=== PATIENT | female | born 1990 | race Caucasian/White ===

== ENCOUNTER → 2019-12-11 10:27 | Outpatient (CLI) | payer OTHER, SELFPAY ==
[2019-12-11 11:43] LABS: HCG Quantitative /Beta subunit 12.6 mIU/mL
== END ==
PROVIDERS: Referring Provider Specialist; Visit Provider Specialist
DX: O20.0 Threatened abortion (principal); O20.9 Hemorrhage in early pregnancy, unspecified
CPT/HCPCS: 36415; 84702

== ENCOUNTER → 2020-05-15 12:04 | Outpatient (CLI) | payer OTHER, SELFPAY ==
[2020-05-15 14:17] LABS: Add Manual Diff / Slide Review NO; Basophils Absolute Auto 0 /uL (0-100); Basophils Percent Auto 0.3 % (0-2); Eosinophils Absolute Auto 100 /uL (0-450); Eosinophils Percent Auto 1.7 % (2-4); Hematocrit 32.8 % (36-46); Hemoglobin 11.1 g/dL (12.0-16.0); Lymphocytes Absolute Auto 1900 /uL (1100-4500); Lymphocytes Percent Auto 22.2 % (25-40); Mean Corpuscular Hemoglobin 32.2 PG (26-34); Mean Corpuscular Volume 94.7 fL (80-100); Monocytes Absolute Auto 500 /uL (0-900); Neutrophils Absolute Auto 6000 /uL (1500-7000); Neutrophils Percent Auto 69.8 % (50-75); Platelet Count 283 X10^3/uL (150-400); Red Blood Cell Count 3.46 X10^6/uL (4.0-5.2); Red Cell Distribution Width 13.3 % (11.6-14.8); White Blood Cell Count 8.6 X10^3/uL (4.5-11.0)
[2020-05-15 14:27] LABS: Appearance Urine UA CLEAR; Bilirubin Urine UA NEGATIVE (NEGATIVE); Color Urine UA YELLOW; Glucose Urine UA NEGATIVE (Negative); Ketones Urine UA NEGATIVE (NEGATIVE); Leukocyte Esterase Urine UA NEGATIVE (NEGATIVE); Nitrite Urine UA NEGATIVE (Negative); Occult Blood Urine UA NEGATIVE (Negative); Protein Urine UA NEGATIVE (Negative); Specific Gravity Urine UA <=1.005 (1.000-1.035); Urobilinogen Urine UA 0.2 E.U./dL (0.2)
[2020-05-15 14:41] LABS: pH Urine UA 6.5 (4.5-8.0)
[2020-05-16 04:36] LABS: RPR Screen Non Reactive (Non Reactive)
[2020-05-16 07:17] LABS: Varicella IgG Antibody 3660 index (Immune >165)
[2020-05-18 17:18] LABS: Hepatitis B Surface Antigen NEGATIVE s/c (NEGATIVE); Rubella Antibody IgG 60.1 IU/mL (>15)
[2020-05-18 17:23] LABS: HIV 1 & 2 Ab/Ag 4th Gen Combo NEGATIVE (NEGATIVE); Hep C Virus Ab w/Reflex Quant NEGATIVE s/c (NEGATIVE)
== END ==
PROVIDERS: PCP Family Medicine; Referring Provider Specialist; Visit Provider Specialist
DX: Z34.91 Encounter for supervision of normal pregnancy, unspecified, first trimester (principal)
CPT/HCPCS: 36415; 80055; 81003; 86787; 86803; 86850; 86900; 86901; 87389

== ENCOUNTER → 2020-06-12 12:41 | Outpatient (CLI) | payer OTHER, SELFPAY | PROVIDERS: PCP Family Medicine; Visit Provider Specialist | DX: Z34.02 Encounter for supervision of normal first pregnancy, second trimester (principal) | CPT/HCPCS: 87491; 87591 ==

== ENCOUNTER → 2020-07-12 11:54 | Outpatient (CLI) | payer OTHER, SELFPAY ==
--- NOTE | 2020-07-12 11:54 | DI.US.S_ITS ---
PROCEDURE: US OB >= 14 WEEKS FETUS INDICATIONS: 20 week anatomy scan OUTSIDE/PRIOR DATING DATA: Last menstrual period (LMP): 02/15/20 . LMP-based estimated date of delivery (KEMAL): 11/21/20 . First dating scan (date and location): 04/17/20 . Estimated date of delivery (KEMAL) from first dating scan: 11/23/20 . TECHNIQUE: Real-time scanning was performed of the fetus, with image documentation and biometric measurements. Endovaginal scanning: Not performed COMPARISON: [facility], , OB <= 14 WEEKS FETUS, 04/17/2020, 11:34. [facility], , OB <= 14 WEEKS FETUS, 04/03/2020, 14:28. [facility], OB >= 14 WEEKS FETUS, 06/12/2020, 12:34. FINDINGS: General: A single living intrauterine gestation is present. Presentation: Vertex. Placenta: Placental position is anterior , without previa. Amniotic fluid index: 18.7 cm, normal range is 5-24 cm. heart rate: 155 beats per minute. Maternal cervical canal: 5.3 cm long. Normal lower limit is 2.5 cm. biometrics: Biparietal diameter: 4.9 cm, 20 weeks 5 days Head circumference: 18.6 cm, 20 weeks 6 days Abdominal circumference: 15.8 cm, 21 weeks 0 days Femur length: 4.4 cm, 24 weeks 4 days Estimated gestational age from initial scan: 20 weeks 6 days Composite gestational age from present scan: 21 weeks 6 days Estimated weight and percentile: 496 g, 99th percentile Measurement variability for biometric dating: +/- 7 days from 14 weeks to 15 weeks 6 days gestation, +/- 10 days from 16 weeks to 21 weeks 6 days gestation, +/- 2 weeks from 22 weeks to 27 weeks 6 days gestation, +/- 3 weeks for 28 weeks gestation or later. weight reference: 4500 g or EFW >90/95% is considered macrosomia or large for gestational age. EFW <10% is small for gestational age. EFW 5% or less is considered intra-uterine growth restriction. Anatomic survey: Neuro: Ventricles are non-dilated at less than 10 mm. Cisterna magna is normal at 3-11 mm. Cerebellum is normal in size and morphology. Nuchal skin fold: Normal at less than 6 mm between 14-21 weeks gestational age. Face: Nose and lips, facial profile are normal. Spine: No evidence for spina bifida. Heart: 4-chambered heart is present, with normal ventricular outflow tracts. Diaphragm: Diaphragm is intact. Stomach: Left-sided stomach is present. Kidneys: No hydronephrosis. Normal is less than 5 mm in 2nd trimester, less than 7 mm in 3rd trimester. Cord: 3-vessel cord has orthotopic insertion. Bladder: Normal in size. Extremities: All 4 extremities identified. IMPRESSION: Single living intrauterine fetus in vertex presentation. Estimated weight at the 99th percentile raising possibility of macrosomia versus constitutional. If clinically warranted, a follow-up growth ultrasound in 4 weeks could be performed. Normal anatomic survey Dictated by: Geo Corona M.D. on 07/12/2020 at 17:23 Approved by: Geo Corona M.D. on 07/12/2020 at 17:27
== END ==
PROVIDERS: PCP Family Medicine; Referring Provider Specialist; Visit Provider Specialist
DX: Z34.82 Encounter for supervision of other normal pregnancy, second trimester (principal); Z3A.17 17 weeks gestation of pregnancy
CPT/HCPCS: 76811

== ENCOUNTER → 2020-08-14 10:47 | Outpatient (CLI) | payer OTHER, SELFPAY ==
[2020-08-14 12:47] LABS: Hematocrit 31.8 % (36-46); Hemoglobin 11.1 g/dL (12.0-16.0)
[2020-08-14 13:28] LABS: GTT (PREG) 1 Hour PP 50gm Dose 81 mg/dL (76-139)
== END ==
PROVIDERS: PCP Family Medicine; Referring Provider Specialist; Visit Provider Specialist
DX: Z34.02 Encounter for supervision of normal first pregnancy, second trimester (principal); Z3A.26 26 weeks gestation of pregnancy
CPT/HCPCS: 36415; 82950; 85014; 85018

== ENCOUNTER → 2020-10-25 15:16 | Outpatient (CLI) | payer OTHER, SELFPAY ==
[2020-10-26 20:30] LABS: Strep Grp B PCR NEG for Grp B Strep
== END ==
PROVIDERS: PCP Family Medicine; Visit Provider Specialist
DX: Z34.83 Encounter for supervision of other normal pregnancy, third trimester (principal); Z3A.36 36 weeks gestation of pregnancy
CPT/HCPCS: 87653

== ENCOUNTER 2020-10-30 09:08 | Inpatient (IN) | payer OTHER, SELFPAY ==
--- NOTE | 2020-10-30 10:18 | PM.OBHP.1 ---
OB HPI Date/Time Date of admission: 10/30/20 Date Patient Seen: 10/30/20 Time Patient Seen: 10:00 History of Present Condition Chief complaint: OBSERVATION : 1 Para: 0 Estimated Date of Delivery: 10/21/20 Estimated Gestational Age (weeks): 37 Narrative: Bryn Blake is a 30 year old at 37 weeks 0 days presenting after rupture for clear fluid at 12:45 p.m. last night, with increasing contractions now Q 2. The patient reports that she had a large gush of fluid followed by ongoing copious leakage of watery fluid, occasionally with a pink tinge. Her contractions are every 2 minutes and painful. She reports good movement in between contractions, no camille vaginal bleeding, and no other symptoms including fevers, chills, or PIH complaints. 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 This is not caused any obstetric complications. Cell free DNA showed XYY, patient was sent for MFM consultation and reports 75% chance that this only affects the placenta, 25% chance fetus is affected. Patient has had no other obstetrical complications or contributory medical, surgical, family, or social history. History of Present care: good care Dating criteria: LMP confirmed by 1st trimester US Ultrasounds: normal 1st trimester US and normal mid trimester US Obstetrical complications: none Medical complications: other (See above) Preadmission Labs Blood type: A (+) positive -: Antibody screen: negative, GBS status: negative, HBsAG: negative, HIV: negative and RPR/VDLR: negative -: Chlamydia screen: not detected and Gonorrhea screen: not detected -: Rubella: immune and Varicella: immune Cell-free DNA: XYY, s/p MFM consult, declined amniocentesis Urine: Culture not performed 1 hr GTT: 81 Prior (ies) History: G1: 12/08/19, 4 wks, SAB, [place] Evaluation Evaluation Baseline heart rate: 130 Variability: Moderate (11-25) monitor accelerations: Present Monitor Decelerations: Absent Contraction Frequency (minutes): 2 Category of Tracing: Reactive Status: Category l Cervical dilation (cm): 3 Cervical effacement (%): 100 station: 0 Non-invasive Membranes Rupture Test: positive (Ongoing leakage clear fluid, +amnisure) Comments: EFW 7# PFSH Medical History Anxiety Back injury (~2012) Bulging of intervertebral disc (~2012) CIDP (chronic inflammatory demyelinating polyneuropathy) (~2012) H/O being hospitalized (~2013) Stomach ulcer (~2013) Tachycardia (~03/2020) Surgical History H/O colonoscopy (~2003) History of esophagogastroduodenoscopy (EGD) (~2003) History of surgical removal of left nipple (~2003) [place] teeth removed (~2007) Family History Mother Depression Anxiety Father Alcoholic Family estrangement Grandmother No problems noted. Grandfather No problems noted. 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 special fang needs: No Smoking Status: Never smoker second hand exposure: Yes (growing up when her Dad was in the home) alcohol intake: former substance use type: does not use and marijuana Meds Home Medications and Allergies Home Medications Medication Instructions Recorded Confirmed Type prenat.vits,margarette,cir-[id number]-[id number] 1 tab PO DAILY 04/03/20 10/25/20 History omeprazole 40 mg capsule,delayed 40 mg PO DAILY #30 cap 10/11/20 10/25/20 Rx release Allergies Allergy/AdvReac Type Severity Reaction Status Date / Time adhesive tape AdvReac Mild rash from Verified 10/30/20 10:14 dressings and bandaids Review of Systems Constitutional Constitutional: Reports system reviewed and no additional complaints, except as documented Cardiovascular Cardiovascular: Reports system reviewed and no additional complaints, except as documented Respiratory Respiratory: Reports system reviewed and no additional complaints, except as documented Gastrointestinal Gastrointestinal: Reports system reviewed and no additional complaints, except as documented Genitourinary Genitourinary: Reports system reviewed and no additional complaints, except as documented Exam Const General: cooperative, healthy appearing, comfortable and acute distress Resp Effort & Inspection: normal respiratory effort Auscultation: clear to auscultation bilaterally Cardio Rate: regular rate Rhythm: regular rhythm GI Palpation: soft and No tender External Female Exam: normal external appearance Extrem General: normal to inspection Assessment and Plan Assessment and Plan Assessment and Plan narrative: This patient presents in early labor, having made significant cervical change from her exam 5 days ago, ruptured clinically and by amnisure, and raad q2 independently. Patient is for admission per usual protocol, considering epidural later in labor. Ambulation encouraged for now. Anticipate .
[2020-10-30 10:28] VITALS: BP 114/68
[2020-10-30 11:06] LABS: COVID19 - ADMIT (NP swab/PCR) Negative (Negative)
[2020-10-30] MEDS: LACTATED RINGERS 1,000 ML 100 ML IV ×2 (11:10→12:17)
[2020-10-30 12:01] LABS: Add Manual Diff / Slide Review NO; Basophils Absolute Auto 100 /uL (0-100); Basophils Percent Auto 0.4 % (0-2); Eosinophils Absolute Auto 100 /uL (0-450); Eosinophils Percent Auto 0.4 % (2-4); Hemoglobin 11.6 g/dL (12.0-16.0); Lymphocytes Absolute Auto 1600 /uL (1100-4500); Mean Corpuscular HGB Conc 34.2 % (30-36); Mean Corpuscular Volume 93.7 fL (80-100); Monocytes Absolute Auto 1000 /uL (0-900); Monocytes Percent Auto 5.5 % (3-14); Neutrophils Absolute Auto 14700 /uL (1500-7000); Neutrophils Percent Auto 84.7 % (50-75); Platelet Count 240 X10^3/uL (150-400); Red Blood Cell Count 3.62 X10^6/uL (4.0-5.2); Red Cell Distribution Width 13.7 % (11.6-14.8); White Blood Cell Count 17.3 X10^3/uL (4.5-11.0)
--- NOTE | 2020-10-30 13:18 | PM.OBPNLAB ---
Date/Time Date Patient Seen: 10/30/20 Time Patient Seen: 13:18 Pain Control Pain control: epidural Pelvic Exam Dilation (cm): 5 Effacement (%): 100 station: 0 Amniotic membrane status: Leaking Contractions Contractions on admission: regular Contraction frequency (min): 2 Contraction pattern: Regular Status status: Category l Heart Rate Baseline: 130 Monitor Accelerations: Present Monitor Decelerations: Absent Monitor Variability: Moderate Assessment and Plan Assessment: active labor Plan: continuous present management
--- NOTE | 2020-10-30 16:56 | P.PCNOB_ITS ---
Labor & Delivery Delivery date: 10/30/20 Intrapartal Events: Acceleration and Deceleration Cervical ripening method: none Induction method: none Delivery monitor: external FHT and external uterine Route of delivery: L&D Laceration Description: Periurethral - 1st Degree and Perineal - 2nd Degree (small) Delivery repair: vicryl Estimated blood loss (mL): 200 Anesthesia Type: Epidural Narrative: This patient presented at 37 weeks 0 days after spontaneous rupture of membranes at home, in early labor. She progressed on augmented to fully dilated, and after an approximately 45 minute 2nd stage, was delivered of a healthy baby boy. There was no nuchal cord, shoulders delivered with ease. The 2nd stage was complicated by an intermittent category 2 tracing, but with moderate variability and accelerations. Apgars were 8 and 9, weight 6#6. The placenta delivered intact shortly thereafter, with a 3 vessel cord but notable for heavy calcifications. The patient underwent repair of a small second-degree perineal laceration primarily for hemostasis. The patient received 30 milliunits of Pitocin in 500 cc of lactated Ringer's, per protocol for hemorrhage prophylaxis. There were no other intrapartum or immediate complications. [place] Baby Albright: gender: Male Presentation: vertex Position: Left Occiput Anterior Placenta delivery description: Spontaneous Cord Vessel Description: 3 Vessels score (1 min): 8 score (5 min): 8 Plan for aftercare: Routine care
[2020-10-30] MEDS: IBUPROFEN 600 MG TABLET PO (19:40)
[2020-10-30] MEDS: ACETAMINOPHEN 325 MG TABLET 650 MG PO (19:41)
[2020-10-30 20:10] VITALS: TEMP 37
[2020-10-30] MEDS: LANOLIN OINT 7 GM 1 APPLIC TOP (21:40)
[2020-10-30] MEDS: DERMOPLAST SPRAY 20% 60 ML 1 SPRAY TOP (21:40)
[2020-10-31] MEDS: OXYCODONE IR 5 MG TABLET PO ×2 (00:45→04:45)
[2020-10-31] MEDS: IBUPROFEN 600 MG TABLET PO ×3 (03:30→18:09)
[2020-10-31] MEDS: ACETAMINOPHEN 325 MG TABLET 650 MG PO ×3 (03:30→18:10)
--- NOTE | 2020-10-31 09:31 | PM.OBDS.1 ---
Discharge Providers Provider Date of admission: 10/30/20 09:08 Discharge Date: 10/31/20 Primary care physician: Juaquin Morrell MD Consults: 10/31/20 16:54 Consult to Spiral Winding Machine Helper Routine Comment: Discharge provider: Monet Perez MD Summary Hospital Course Date Patient Seen: 10/31/20 Time Patient Seen: 09:32 Diagnoses: spontaneous labor at 37 weeks gestation Hospital Course: This patient presented in early labor after SROM at home, for clear fluid. Patient progressed to fully dilated unaugmented and had an uncomplicated spontaneous vaginal delivery with a small perineal laceration. She was delivered of a healthy baby boy, apgars 8+9, weight 6#6, with no nuchal cord and easy delivery of the shoulders. Her course was uncomplicated, and she was discharged home on PPD#1. Peripartum Data Delivery Method: Natural Vaginal Laceration Description: Perineal - 2nd Degree complications: none Grover Albright: Gender: Male Disposition of : home Status at Discharge Cognitive/behavioral status at discharge: oriented Functional status at discharge: independent ambulation Overall status at discharge: patient is progressing back to baseline Time Spent with Patient Time attestation: Total time spent providing and/or coordinating discharge services: Time spent: Less than 30 minutes Objective Labs Result Diagrams: 10/30/20 11:37 Labs: Laboratory Results - last 24 hr 10/30/20 10/30/20 10/30/20 10:11 11:37 11:43 WBC 17.3 H RBC 3.62 L Hgb 11.6 L Hct 34.0 L MCV 93.7 MCH 32.0 MCHC 34.2 RDW 13.7 Plt Count 240 Neut % (Auto) 84.7 H Lymph % (Auto) 9.[address] % (Auto) 5.5 Eos % (Auto) 0.4 L Baso % (Auto) 0.4 Neut # (Auto) 65463 H Lymph # (Auto) 1600 [facility] # (Auto) 1000 H Eos # (Auto) 100 Baso # (Auto) 100 SARS-CoV-2 (PCR) Negative Blood Type A Positive Antibody Screen Negative Exam Vital Signs (past 8 hours): 122/69 Narrative Exam Narrative: Resting in bed, working on . Reports ambulating, voiding, passing flatus, mild lochia, no PIH symptoms, no other concerns. Const General: cooperative, healthy appearing and comfortable Resp Effort & Inspection: normal respiratory effort Auscultation: clear to auscultation bilaterally Cardio Rate: regular rate Rhythm: regular rhythm Extrem General: normal to inspection Discharge Plan Discharge Plan Patient Disposition: Home Discharge orders & Medications Prescriptions: Continued prenat.vits,margarette,[id number] Tablet 1 tab PO DAILY RF: 0 omeprazole 40 mg capsule,delayed release(DR/EC) 40 mg PO DAILY Qty: 30 RF: 0 Follow up/Referrals: Juaquin Morrell MD [Primary Care Provider] - Juanita Daley MD [Physician] - 1 Month (Please follow-up with Dr. Daley on November 29 at 1:30pm for a check up. Check-in at 1:15pm. If you have any questions please call her office. ) Diet/Activity/Treatments Diet: Regular Activity: Nothing in the vagina for 6 weeks. Avoid lifting more than 10 lbs for 6 weeks. If you have increasing bleeding, fevers, chills, nausea, vomiting, headaches, visual changes, or any other symptoms, call or come to the emergency room. Skin/Wound/Dressing Care Report to your healthcare provider any signs of infection, such as:: chills, fever, night sweats, increased pain, unusual drainage and unusual redness Visit Report/Discharge Packet Instructions: DI for Labor and Delivery, Vaginal Discharge Data Primary Care Provider: Juaquin Morrell
[2020-10-31 13:44] VITALS: BP 135/71; PULSE 85; RESP 16; TEMP 36.9
== END 2020-10-31 18:30 | disposition home or self-care (01) | DRG 807 ==
PROVIDERS: Obstetrics & Gynecology; Admitting Provider Specialist; PCP Family Medicine; Referring Provider Specialist; Visit Provider Specialist
DX: O76 Abnormality in fetal heart rate and rhythm complicating labor and delivery (principal); Z37.0 Single live birth; Z3A.37 37 weeks gestation of pregnancy; O71.82 Other specified trauma to perineum and vulva; O70.1 Second degree perineal laceration during delivery; O28.5 Abnormal chromosomal and genetic finding on antenatal screening of mother; Z20.822 Contact with and (suspected) exposure to COVID-19
CPT/HCPCS: 01967; 36415; 59050; 59400; 59409; 84112; 85025; 86850; 86900; 86901; 87635; C9803; G0379

== ENCOUNTER → 2021-02-27 08:17 | Outpatient (CLI) | payer OTHER, SELFPAY ==
[2021-02-27 18:55] LABS: Add Manual Diff / Slide Review NO; Basophils Absolute Auto 0 /uL (0-100); Basophils Percent Auto 0.3 % (0-2); Eosinophils Absolute Auto 300 /uL (0-450); Eosinophils Percent Auto 4.4 % (2-4); Hematocrit 37.4 % (36-46); Hemoglobin 12.3 g/dL (12.0-16.0); Lymphocytes Absolute Auto 1900 /uL (1100-4500); Lymphocytes Percent Auto 32.2 % (25-40); Mean Corpuscular HGB Conc 32.8 % (30-36); Mean Corpuscular Volume 94.3 fL (80-100); Monocytes Absolute Auto 400 /uL (0-900); Neutrophils Absolute Auto 3400 /uL (1500-7000); Neutrophils Percent Auto 56.1 % (50-75); Platelet Count 272 X10^3/uL (150-400); Red Blood Cell Count 3.97 X10^6/uL (4.0-5.2); Red Cell Distribution Width 13.7 % (11.6-14.8)
[2021-02-27 19:02] LABS: HEMOLYSIS < 15 (0-50); Iron 56 ug/dL (37-170)
[2021-02-27 19:05] LABS: Alanine Aminotransferase 19 IU/L (<35); Albumin 4.2 g/dL (3.5-5.0); Albumin Globulin Ratio 1.6 (1.0-2.8); Alkaline Phosphatase 63 U/L (38-126); Aspartate Aminotransferase 22 IU/L (14-36); BUN Creatinine Ratio 18.8 (6-22); Bilirubin Total 0.2 mg/dL (0.2-1.3); Blood Urea Nitrogen 12 mg/dL (7-17); Calcium 10.1 mg/dL (8.4-10.2); Carbon Dioxide 25 mmol/L (22-32); Chloride 108 mmol/L (98-107); Cholesterol 178 mg/dL (140-199); Estimated Glomerular Filt Rate > 60.0 mL/min (>60); Globulin 2.6 g/dL (1.7-4.1); Glucose 91 mg/dL (70-100); HDL Cholesterol 64 mg/dL (40-60); HEMOLYSIS < 15 (0-50); LDL Cholesterol Calculated 103 mg/dL (<100); Potassium 4.4 mmol/L (3.4-5.1); Sodium 140 mmol/L (137-145); Total Protein 6.8 g/dL (6.3-8.2); Triglycerides 57 mg/dL (35-150)
[2021-02-27 19:12] LABS: Percent Iron Saturation 23 % (15-50); Total Iron Binding Capacity 243 ug/dL (265-497); Transferrin 217 mg/dL (206-381)
[2021-02-27 19:41] LABS: Ferritin 50 ng/mL (6-137)
[2021-02-27 19:50] LABS: Reticulocyte Count, Percent 1.2 % (1.06-2.63)
[2021-02-27 20:11] LABS: Folate 14.4 ng/mL (2.76-20.0); Vitamin B12 805 pg/mL (239-931)
== END ==
PROVIDERS: PCP Family Medicine; Visit Provider Family Medicine
DX: D64.9 Anemia, unspecified (principal); T78.2XXA Anaphylactic shock, unspecified, initial encounter; Z13.220 Encounter for screening for lipoid disorders
CPT/HCPCS: 80053; 80061; 82607; 82728; 82746; 83540; 83550; 85025; 85045

== ENCOUNTER → 2022-04-16 13:10 | Outpatient (CLI) | payer OTHER, MEDICAID, SELFPAY ==
[2022-04-16 20:22] LABS: Add Manual Diff / Slide Review NO; Basophils Absolute Auto 100 /uL (0-100); Basophils Percent Auto 1.1 % (0-2); Eosinophils Absolute Auto 100 /uL (0-450); Eosinophils Percent Auto 1.9 % (2-4); Hematocrit 34.9 % (36-46); Hemoglobin 11.9 g/dL (12.0-16.0); Lymphocytes Absolute Auto 1600 /uL (1100-4500); Mean Corpuscular Volume 94.1 fL (80-100); Monocytes Absolute Auto 400 /uL (0-900); Monocytes Percent Auto 6.1 % (3-14); Neutrophils Absolute Auto 4300 /uL (1500-7000); Neutrophils Percent Auto 65.9 % (50-75); Platelet Count 290 X10^3/uL (150-400); Red Blood Cell Count 3.71 X10^6/uL (4.0-5.2); Red Cell Distribution Width 14.3 % (11.6-14.8); White Blood Cell Count 6.6 X10^3/uL (4.5-11.0)
[2022-04-16 20:58] LABS: HEMOLYSIS 30 (0-50); Iron 94 ug/dL (37-170)
[2022-04-16 21:02] LABS: Alanine Aminotransferase 75 IU/L (<35); Albumin 4.3 g/dL (3.5-5.0); Albumin Globulin Ratio 1.4 (1.0-2.8); Alkaline Phosphatase 58 U/L (38-126); Amylase 64 U/L (30-110); Aspartate Aminotransferase 70 IU/L (14-36); BUN Creatinine Ratio 16.7 (6-22); Bilirubin Total 0.4 mg/dL (0.2-1.3); Blood Urea Nitrogen 11 mg/dL (7-17); Calcium 8.5 mg/dL (8.4-10.2); Carbon Dioxide 23 mmol/L (22-32); Chloride 107 mmol/L (98-107); Estimated Glomerular Filt Rate > 60 mL/min (>60); Glucose 109 mg/dL (70-100); HEMOLYSIS 16 (0-50); Potassium 3.7 mmol/L (3.4-5.1); Sodium 141 mmol/L (137-145); Total Protein 7.3 g/dL (6.3-8.2)
[2022-04-16 21:13] LABS: Percent Iron Saturation 40 % (15-50); Total Iron Binding Capacity 233 ug/dL (265-497); Transferrin 177 mg/dL (206-381)
[2022-04-16 21:34] LABS: Ferritin 66 ng/mL (6-137)
== END ==
PROVIDERS: PCP Physician Assistant; Visit Provider Physician Assistant
DX: D50.9 Iron deficiency anemia, unspecified (principal); R10.811 Right upper quadrant abdominal tenderness
CPT/HCPCS: 80053; 82150; 82728; 83540; 83550; 85025

== ENCOUNTER → 2022-04-17 11:30 | Outpatient (CLI) | payer OTHER, MEDICAID, SELFPAY ==
[2022-04-17 19:37] LABS: Alanine Aminotransferase 62 IU/L (<35); Albumin 4.4 g/dL (3.5-5.0); Albumin Globulin Ratio 1.5 (1.0-2.8); Alkaline Phosphatase 52 U/L (38-126); Aspartate Aminotransferase 33 IU/L (14-36); Bilirubin Total 0.4 mg/dL (0.2-1.3); Bilirubin Unconjugated 0.2 mg/dL (0.0-1.1); HEMOLYSIS 27 (0-50); Total Protein 7.4 g/dL (6.3-8.2)
[2022-04-18 16:30] LABS: Hepatitis B Surface Antigen NEGATIVE s/c (NEGATIVE)
[2022-04-18 16:50] LABS: HIV 1 & 2 Ab/Ag 4th Gen Combo NEGATIVE (NEGATIVE); Hep C Virus Ab w/Reflex Quant NEGATIVE s/c (NEGATIVE)
[2022-04-20 12:43] LABS: ANA Screen, IFA Negative (.)
== END ==
PROVIDERS: PCP Physician Assistant; Visit Provider Family Medicine
DX: D51.0 Vitamin B12 deficiency anemia due to intrinsic factor deficiency (principal); M54.16 Radiculopathy, lumbar region; R79.89 Other specified abnormal findings of blood chemistry
CPT/HCPCS: 80076; 86038; 86803; 87340; 87389

== ENCOUNTER → 2022-09-05 10:08 | Outpatient (CLI) | payer OTHER, MEDICAID, SELFPAY ==
--- NOTE | 2022-09-05 | DI.US.S_ITS ---
PROCEDURE: US OB >= 14 WEEKS FETUS INDICATIONS: 20 WK ANATOMY OUTSIDE/PRIOR DATING DATA: Last menstrual period (LMP): 04/18/2022. LMP-based estimated date of delivery (KEMAL): 01/23/2023. TECHNIQUE: Real-time scanning was performed of the fetus, with image documentation and biometric measurements. COMPARISON: [facility], US, OB >= 14 WEEKS FETUS, 09/13/2020, 11:00. FINDINGS: General: A single living intrauterine gestation is present. Presentation: Breech. Placenta: Placental position is posterior, without previa. Amniotic fluid index: 14.3 cm, normal range is 5-24 cm. Single deepest vertical pocket is 4.3 cm. heart rate: 145 beats per minute. Maternal cervical canal: 4.3 cm long. Normal lower limit is 2.5 cm. biometrics: Biparietal diameter: 4.8 cm, 20 weeks 4 days Head circumference: 17.5 cm, 20 weeks 0 days Abdominal circumference: 15.3 cm, 20 weeks 4 days Femur length: 3.3 cm, 20 weeks 2 days Clinically estimated gestational age: 20 weeks 0 days Composite gestational age from present scan: 20 weeks 3 days Estimated weight and percentile: 349 g, 67th percentile Anatomic survey: Neuro: Ventricles are non-dilated at less than 10 mm. Cisterna magna is normal at 3-11 mm. Cerebellum is normal in size and morphology. Nuchal skin fold: Normal at less than 6 mm between 14-21 weeks gestational age. Face: Nose and lips, facial profile are normal. Spine: No evidence for spina bifida. Heart: 4-chambered heart is present, with normal ventricular outflow tracts. Diaphragm: Diaphragm is intact. Stomach: Left-sided stomach is present. Kidneys: No hydronephrosis. Normal is less than 5 mm in 2nd trimester, less than 7 mm in 3rd trimester. Cord: 3-vessel cord has orthotopic insertion. Bladder: Normal in size. Extremities: All 4 extremities identified. IMPRESSION: 1. Lemon living intrauterine at 20 weeks 3 days based on today's ultrasound. Fetus is in the 67th percentile for weight. 2. Normal placenta and amniotic fluid. 3. Normal and complete anatomic survey. We strive to produce accurate, complete, and clear reports of imaging services. To assist us in improving patient care, this report was composed using standard report templates and voice recognition software. Therefore, it may contain abnormal punctuation, insertions and/or omissions. Occasional wrong-word or sound-alike substitutions may occur. Though we review the report and make efforts to correct it, we do recommend that the report be read carefully in proper context to recognize any text inaccuracies. Dictated by: Vick Rodriguez M.D. on 09/05/2022 at 12:50 Approved by: Vick Rodriguez M.D. on 09/05/2022 at 12:53
== END ==
PROVIDERS: PCP Physician Assistant; Referring Provider Nurse Practitioner Obstetrics & Gynecology; Visit Provider Nurse Practitioner Obstetrics & Gynecology
DX: Z34.92 Encounter for supervision of normal pregnancy, unspecified, second trimester (principal); Z3A.20 20 weeks gestation of pregnancy
CPT/HCPCS: 76811

== ENCOUNTER → 2022-11-18 13:13 | Outpatient (CLI) | payer OTHER, MEDICAID, SELFPAY ==
[2022-11-18 20:21] LABS: Alanine Aminotransferase 20 IU/L (<35); Albumin 3.4 g/dL (3.5-5.0); Albumin Globulin Ratio 1.3 (1.0-2.8); Alkaline Phosphatase 74 U/L (38-126); Aspartate Aminotransferase 23 IU/L (14-36); Bilirubin Total 0.2 mg/dL (0.2-1.3); Globulin 2.7 g/dL (1.7-4.1); HEMOLYSIS < 15 (0-50); Total Protein 6.1 g/dL (6.3-8.2)
[2022-11-18 20:30] LABS: Hematocrit 32.9 % (36-46); Hemoglobin 11.2 g/dL (12.0-16.0); Mean Corpuscular HGB Conc 34.2 % (30-36); Mean Corpuscular Hemoglobin 32.2 PG (26-34); Mean Corpuscular Volume 94.2 fL (80-100); Platelet Count 274 X10^3/uL (150-400); Red Blood Cell Count 3.49 X10^6/uL (4.0-5.2); Red Cell Distribution Width 13.9 % (11.6-14.8); White Blood Cell Count 7.7 X10^3/uL (4.5-11.0)
[2022-11-18 21:09] LABS: Vitamin B12 711 pg/mL (239-931)
[2022-11-18 21:11] LABS: Add Manual Diff / Slide Review YES
[2022-11-18 21:14] LABS: Neutrophils Absolute Manual 5236 /uL (3000-5900); RBC Morphology Normal Morphology; Total Cells Counted 100
== END ==
PROVIDERS: PCP Physician Assistant; Visit Provider Family Medicine
DX: D51.0 Vitamin B12 deficiency anemia due to intrinsic factor deficiency (principal); R79.89 Other specified abnormal findings of blood chemistry; D64.9 Anemia, unspecified; K90.0 Celiac disease
CPT/HCPCS: 80076; 82607; 85007; 85025

== ENCOUNTER → 2022-11-20 08:39 | Outpatient (CLI) | payer OTHER, MEDICAID, SELFPAY ==
[2022-11-22 14:38] LABS: Fecal Immunochemical Test Negative (Negative)
== END ==
PROVIDERS: PCP Physician Assistant; Visit Provider Family Medicine
DX: D64.9 Anemia, unspecified (principal)
CPT/HCPCS: 82274

== ENCOUNTER → 2022-12-16 11:28 | Outpatient (CLI) | payer OTHER, MEDICAID, SELFPAY ==
[2022-12-16 20:18] LABS: Hematocrit 31.9 % (36-46); Hemoglobin 10.8 g/dL (12.0-16.0); Mean Corpuscular HGB Conc 33.9 % (30-36); Mean Corpuscular Volume 94.3 fL (80-100); Platelet Count 218 X10^3/uL (150-400); Red Blood Cell Count 3.38 X10^6/uL (4.0-5.2); Red Cell Distribution Width 14.2 % (11.6-14.8); White Blood Cell Count 12.1 X10^3/uL (4.5-11.0)
[2022-12-16 20:27] LABS: Add Manual Diff / Slide Review YES
[2022-12-16 20:42] LABS: TSH w/ Reflex to FT4 1.49 uIU/mL (0.47-4.68)
[2022-12-16 21:48] LABS: Neutrophils Absolute Manual 9680 /uL (3000-5900); RBC Morphology Normal Morphology; Total Cells Counted 100
== END ==
PROVIDERS: PCP Physician Assistant; Visit Provider Family Medicine
DX: D64.9 Anemia, unspecified (principal)
CPT/HCPCS: 84443; 85007; 85025

== ENCOUNTER 2023-01-24 21:16 | Inpatient (IN) | payer OTHER, MEDICAID, SELFPAY ==
--- NOTE | 2023-01-24 22:27 | PM.OBHP.1 ---
OB HPI Date/Time Date of admission: 01/24/23 Date Patient Seen: 01/24/23 Time Patient Seen: 22:00 History of Present Condition Chief complaint: Labor : 3 Para: 1 Estimated Date of Delivery: 01/23/23 Estimated Gestational Age (weeks): 40w1d Narrative: Bryn Blake is a 32 year old female by sure LMP concordant with 12wk US here for evaluation of labor. Her contractions started earlier this evening, progressing steadily, she made the decision to be flown by helicopter off [place]. She is raad every 2-3min, no fluid leaking or bleeding, she reports positive movement. She is coping well, slightly anxious about [place]. Uncomplicated care with CNM established at 11 weeks. Requesting epidural as contractions are getting more intense. History of Present care: good care, initiated at week # (11), number of visits (10) and pounds weight gain (38) Dating criteria: LMP confirmed by 1st trimester US Ultrasounds: normal 1st trimester US and normal mid trimester US Preadmission Labs Blood type: A (+) positive -: Antibody screen: negative, Cystic fibrosis screen: negative, GBS status: negative, HBsAG: negative, HIV: negative, HSV 1: negative, HSV 2: negative and RPR/VDLR: negative -: Chlamydia screen: not detected and Gonorrhea screen: not detected -: Rubella: immune and Varicella: immune HCT: 31.9 HCAB: negative Quad screen: Normal (MsAFP) Cell-free DNA: Negative (XY) Urine: negative 1 hr GTT: 98 Prior (ies) History: SAB x 1 (11/2019); 10/2020 @ 37 weeks Evaluation Evaluation Baseline heart rate: 150 Variability: Moderate (11-25) monitor accelerations: Present Monitor Decelerations: Absent Contraction Frequency (minutes): 3 Uterine Contraction Intensity: Moderate Status: Category l Dilation (cm): 4 Effacement (%): 90 Dilation: 3-4 cm Effacement: >/=80% station: -1 Position of cervix: anterior Consistency: soft Knowles score: 11 Comments: Membranes intact [facility] Medical History (Updated 01/24/23 @ 23:20 by Monet Daniel, BE, [employer]) Anemia Anxiety Arthralgia of left temporomandibular joint Arthritis of facet joint of lumbar spine Bulging of intervertebral disc (~2012) CIDP (chronic inflammatory demyelinating polyneuropathy) (~2012) Elevated LFTs H/O being hospitalized (~2013) Hammer toe of second toe of right foot History of anaphylaxis Hyperhidrosis Lumbar radiculopathy MMN (multifocal motor neuropathy) Pernicious anemia PLMD (periodic limb movement disorder) Stomach ulcer (~2013) Tachycardia (~03/2020) Surgical History (Updated 03/18/21 @ 21:54 by Mary Alice Fish) Anesthesia H/O colonoscopy (~2003) History of esophagogastroduodenoscopy (EGD) (~2003) History of surgery (~2014) History of surgical removal of left nipple (~2003) [place] teeth removed (~2007) Family History (Updated 03/18/21 @ 21:56 by Mary Alice Fish) Mother Depression Anxiety Father Alcoholic Family estrangement Grandmother No problems noted. Grandfather No problems noted. 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 ; 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 special fang needs: No Smoking Status: Never smoker second hand exposure: Yes (growing up when her Dad was in the home) alcohol intake: former substance use type: does not use Meds Home Medications and Allergies Home Medications Medication Instructions Recorded Confirmed Type prenat.vits,margarette,ixx-yaux-xeado 1 tab PO DAILY 04/03/20 03/06/21 History lidocaine 5 % topical patch 1 patch topical DAILY #15 ea 10/22/21 10/22/21 Rx cyanocobalamin (vitamin B-12) 1,000 mcg IM QMONTH #3 mL 11/07/22 Rx 1,000 mcg/mL injection solution syringe with needle 1 mL 25 gauge #100 ea 11/07/22 Rx x 1 epinephrine 0.3 mg/0.3 mL 0.3 mg (0.3 mL) IM Q5-15M PRN 12/10/22 Rx injection, auto-injector anaphylaxis #2 ea Allergies Allergy/AdvReac Type Severity Reaction Status Date / Time adhesive tape AdvReac Mild rash from Verified 08/21/21 13:49 dressings and bandaids bees Allergy Severe Anaphylaxis Uncoded 08/21/21 13:49 GLUTEN MEAL Allergy Unknown HAS CELIAC Uncoded 08/21/21 13:49 DISEASE, STAYS AWAY FROM GLUTEN Review of Systems Review of Systems Narrative: Negative except as noted in HPI OB Exam Vital signs Blood Pressure: 123/65 Pulse Rate: 97 Respiratory Rate: 16 Temperature: 97.2 F Resp Effort & Inspection: normal respiratory effort and able to speak in complete sentences Auscultation: clear to auscultation bilaterally Cardio Rate: regular rate Rhythm: regular rhythm Heart Sounds: S1 normal, S2 normal and normal, physiologic split S2 GI Inspection: normal to inspection and other (gravid) Presentation: vertex Estimated Weight (lbs): 8 Assessment and Plan Assessment and Plan Assessment and Plan narrative: Term multipara Early labor GBS neg Rh pos Celiac disease Mild anemia of Adhesive allergy FHR Cat 1 Admit to L&D Epidural as desired Anticipate
[2023-01-24 23:31] VITALS: BP 123/65; PULSE 97; RESP 16; TEMP 36.2
[2023-01-24 23:42] LABS: Add Manual Diff / Slide Review NO; Basophils Absolute Auto 0 /uL (0-100); Basophils Percent Auto 0.3 % (0-2); Eosinophils Absolute Auto 100 /uL (0-450); Eosinophils Percent Auto 0.9 % (2-4); Hematocrit 33.3 % (36-46); Hemoglobin 11.5 g/dL (12.0-16.0); Lymphocytes Absolute Auto 2100 /uL (1100-4500); Lymphocytes Percent Auto 13.9 % (25-40); Mean Corpuscular HGB Conc 34.6 % (30-36); Mean Corpuscular Hemoglobin 32.2 PG (26-34); Mean Corpuscular Volume 92.9 fL (80-100); Monocytes Absolute Auto 800 /uL (0-900); Monocytes Percent Auto 5.3 % (3-14); Neutrophils Absolute Auto 12200 /uL (1500-7000); Neutrophils Percent Auto 79.6 % (50-75); Platelet Count 238 X10^3/uL (150-400); Red Blood Cell Count 3.58 X10^6/uL (4.0-5.2); Red Cell Distribution Width 13.9 % (11.6-14.8); White Blood Cell Count 15.3 X10^3/uL (4.5-11.0)
[2023-01-25 00:13] VITALS: BP 128/67
--- NOTE | 2023-01-25 05:55 | PM.OBPRVD ---
Events: Other (Normal, healthy ) Labor & Delivery Delivery date: 01/25/23 Intrapartal Events: None Cervical ripening method: none Induction method: none Delivery monitor: external FHT and external uterine Route of delivery: L&D Laceration Description: Vaginal - 2nd Degree Delivery repair: vicryl Anesthesia Type: Epidural Narrative: Marylin is a G3 now P2 s/p NSVB. She was resting comfortably with epidural when she reported increased vaginal and rectal pressure. With a SVE by SNM she was found to be complete and ready to push. Laying on her left side she pushed effectively with some coaching for a short second stage. Baby boy, Micah, was delivered OA, restituted to JM with SNM and FOB hands on at delivery. Shoulders were delivered without additional maneuvers. FOB helped to hand the baby through her legs and onto her abdomen when she was ready to receive him, APGARS 9/9. Pitocin was started per protocol. The cord was double clamped by SNM and cut by FOB once pulsations ceased and cord blood collected. The placenta was delivered after 10 min, spontaneously, Schultze, appears intact upon inspection with a three vessel cord. Light to moderate bleeding with fundus firm @ U-3. 2nd degree vaginal laceration well approximated and hemostatic but repaired due to depth using 3-0 vicryl. QBL 117 mL. initiated as we exited the room. Alainah and Giovanny are thrilled to meet baby sinan Obrien. Baby 1: Infant gender: Male Presentation: vertex Position: Left Occiput Anterior Placenta delivery description: Spontaneous Cord Vessel Description: 3 Vessels score (1 min): 9 score (5 min): 9 Plan for aftercare: Routine care
[2023-01-25] MEDS: KETOROLAC 30 MG/ML VIAL IV (07:29)
[2023-01-25] MEDS: ACETAMINOPHEN 325 MG TABLET 975 MG PO ×3 (07:30→23:56)
[2023-01-25] MEDS: DERMOPLAST SPRAY 20% 60 ML 1 SPRAY TOP (07:31)
--- NOTE | 2023-01-25 07:35 | PM.OBPNLAB ---
Date/Time Date Patient Seen: 01/25/23 Time Patient Seen: 02:50 Pain Control Pain control: tolerating well and epidural Comments: Marylin is starting to feel increased pain during contractions on her right side. Requesting anesthesia come to bedside to asses and help get her more comfortable. Pelvic Exam Dilation (cm): 7 Effacement (%): 95 station: 0 Amniotic membrane status: Ruptured Contractions Contraction frequency (min): 2 Contraction duration (min): 1 Contraction pattern: Regular Contraction intensity: Moderate Status status: Category l Heart Rate Baseline: 135 Monitor Accelerations: Present Monitor Decelerations: Absent Monitor Variability: Moderate Assessment and Plan Assessment: active labor Plan: continuous present management Comments: A: Term multip Active labor SROM with clear fluid Epidural FHR Cat 1 P: Request anesthesia come to bedside Continue expectant management Anticipate NSVB
[2023-01-25] MEDS: IBUPROFEN 600 MG TABLET PO ×2 (13:40→19:57)
[2023-01-25] MEDS: MAGNESIUM HYDROXIDE 30 ML UDC PO (16:27)
--- NOTE | 2023-01-26 01:35 | PM.OBDS.1 ---
Discharge Providers Provider Date of admission: 01/24/23 21:16 Discharge Date: 01/26/23 Primary care physician: Maria D Fontenot PA-C Consults: 01/24/23 23:07 Consult to Anesthesiology Urgent Comment: Consulting Provider: Anesthesiologist Reason for consultation: Epidural Has provider been notified: No 01/26/23 05:43 Consult to [employer] Routine Comment: Discharge provider: Monet Daniel CNM, ARNP Summary Hospital Course Date Patient Seen: 01/26/23 Time Patient Seen: 01:35 Diagnoses: Z39.1 - Normal woman, Hospital Course: Marylin arrived in early, progressed without augmentation to complete and had a evelio NSVB with epidural for analgesia. Normal course. . Peripartum Data Delivery Method: Natural Vaginal Laceration Description: Vaginal - 2nd Degree (repaired in usual fashion) [place] 1: Gender: Male Disposition of : home Discharge Diagnosis (1) Lactating mother: Start Date: 01/25/23 Start Time: 04:45 Status: Acute Status at Discharge Cognitive/behavioral status at discharge: oriented and at baseline, oriented Functional status at discharge: independent ambulation Overall status at discharge: patient is progressing back to baseline Time Spent with Patient Specific discharge activities: Detailed discussion of warning signs and normal course. Discussed . Objective Labs 01/24/23 23:34 Exam Vital Signs (past 8 hours): BP: 114/66 P: 80 bpm RR: 16/min Temp: 97.9 Other: Fundus firm at U, midline. Lochia scant Perineum intact with minimal edema Vaginal laceration healing Neuro General: patient alert, patient awake and patient oriented x3 Extrem General: normal to inspection and full ROM Psych Appearance: grossly normal Mental Status: mental status grossly normal Speech and Movement: speech and movement normal Mood: congruent mood Discharge Plan Discharge Plan Patient Disposition: Home Discharge orders & Medications Prescriptions: Continued epinephrine 0.3 mg/0.3 mL auto-injector 0.3 mg IM Q5-15M PRN (Reason: anaphylaxis) Qty: 2 2RF Rx Instructions: do not exceed 3 doses per episode prenat.vits,margarette,qfb-sihf-woqqx Tablet 1 tab PO DAILY Discontinued cyanocobalamin (vitamin B-12) 1,000 mcg/mL solution 1,000 mcg IM QMONTH Qty: 3 0RF (DME) syringe with needle 1 mL 25 gauge x 1 syringe See Rx Instructions .ROUTE .MEDSUPPLY Qty: 100 0RF Rx Instructions: Use as directed to inject B12 intramuscularly once monthly. lidocaine 5 % adhesive patch,medicated 1 patch topical DAILY Qty: 15 1RF Rx Instructions: leave on most painful area for up to 12 hrs Follow up/Referrals: Maria D Fontenot PA-C [Primary Care Provider] - Monet Daniel, BE, NAM [[facility]ist] - 2 Weeks (2 week and 6 week visits with BE at [facility] as scheduled) Diet/Activity/Treatments Diet: Diet as Tolerated and Regular Diet comment: Focus on healthy foods and high fiber foods Activity: Low baugh x 2 weeks Cold/Heat Therapy: as needed Skin/Wound/Dressing Care Report to your healthcare provider any signs of infection, such as:: chills, fever, unusual drainage and unusual redness Visit Report/Discharge Packet Stand Alone Forms: Patient Portal/API Discharge Data Primary Care Provider: Maria D Fontenot
[2023-01-26] MEDS: IBUPROFEN 600 MG TABLET PO (02:04)
== END 2023-01-26 06:40 | disposition home or self-care (01) | DRG 560 ==
PROVIDERS: Admitting Provider Advanced Practice Midwife; PCP Physician Assistant; Referring Provider Advanced Practice Midwife; Visit Provider Advanced Practice Midwife
DX: O48.0 Post-term pregnancy (principal); Z3A.40 40 weeks gestation of pregnancy; Z37.0 Single live birth; O70.1 Second degree perineal laceration during delivery; Z67.10 Type A blood, Rh positive
CPT/HCPCS: 36415; 59050; 85025; 86850; 86900; 86901; G0379; J1885

== ENCOUNTER 2023-03-09 12:09 | Observation (INO) | payer OTHER, MEDICAID, SELFPAY ==
[2023-03-09] VITALS (10 sets, daily range): BP systolic 104–124; BP diastolic 58–79; PULSE 68–98; RESP 16–56; TEMP 36.2–36.9; O2SAT 96–99; BMI 23.8
--- NOTE | 2023-03-09 12:09 | DI.CT.S_ITS ---
PROCEDURE: CT STROKE INDICATIONS: stroke symptoms TECHNIQUE: Noncontrast 4.5 mm thick angled axial sections acquired from the foramen magnum to the vertex, with coronal reformats. For radiation dose reduction, the following was used: automated exposure control, adjustment of mA and/or kV according to patient size. COMPARISON: None. FINDINGS: Image quality: Excellent. CSF spaces: Basal cisterns are patent. No extra-axial fluid collections. Ventricles are normal in size and shape. Brain: No midline shift. No intracranial masses or hemorrhage. Cain-white matter interface is normal. Skull and face: Calvarium and visualized facial bones are intact, without suspicious lesions. Sinuses: Visualized sinuses and mastoids are clear. IMPRESSION: No acute intracranial abnormality. This study fulfills neurological imaging criteria for inclusion or exclusion of acute stroke therapies based on available published neurological imaging guidelines. Dictated by: Elisabeth Cortes M.D. on 03/09/2023 at 12:49 Approved by: Elisabeth Cortes M.D. on 03/09/2023 at 12:52
--- NOTE | 2023-03-09 12:10 | DI.CT.S_ITS ---
PROCEDURE: CT ANGIO HEAD AND NECK INDICATIONS: stroke symptoms TECHNIQUE: After the administration of intravenous contrast, 1 mm thick sections acquired from the aortic arch through the [place] of [place]. 3-dimensional ratcfat-dibizquss-gnzewgcazh (MIP) and/or volume rendering reformats were acquired of the central intracranial vasculature and neck separately. For radiation dose reduction, the following was used: automated exposure control, adjustment of mA and/or kV according to patient size. COMPARISON: [facility], CT, CT STROKE, 03/09/2023, 12:19. FINDINGS: Image quality: Diagnostic. BRAIN: CSF spaces: Ventricles are normal in size and shape. Basal cisterns are patent. No extra-axial fluid collections. Brain: No significant abnormality of the brain can be seen. Skull and face: Calvarium and facial bones appear intact, without suspicious lesions. Orbits appear normal. Sinuses: Sinuses and mastoids are clear. HEAD CT ANGIOGRAPHY: Anterior circulation: Intracranial internal carotid arteries are normal in size and flow. The flow within the paired anterior cerebral arteries is normal and symmetric. The flow within the middle cerebral arteries is normal and symmetric. The anterior communicating artery is seen. No aneurysms are seen. Posterior circulation: Visualized portions of the vertebral arteries demonstrate normal caliber, and join to form a normal appearing basilar artery. Flow within the posterior cerebral arteries is normal and symmetric. No aneurysms are seen. NECK CT ANGIOGRAPHY: Carotid system: The great vessels demonstrate a conventional anatomy as they arise from the aortic arch. The origins of the common carotid arteries appear patent. The common carotid arteries demonstrate normal caliber and courses. The bifurcation regions are both widely patent. The internal carotid arteries demonstrate normal calibers and courses. Posterior circulation: The origins of the vertebral arteries both appear widely patent. The more superior extracranial portions of both vertebral arteries also demonstrate normal courses and calibers. They join to form a normal appearing basilar artery. Soft tissues: Visualized neck soft tissues demonstrate no suspicious abnormalities. Bones: No suspicious bony lesions. Visualized cervical spine appears normally aligned. IMPRESSION: No significant intracranial arterial abnormality is seen. Within the arteries of the neck, no hemodynamically significant stenosis can be seen. No findings of dissection are seen. If there is strong clinical suspicion for an acute stroke, please consider a brain MRI for further evaluation, as it is more sensitive (assuming that there is no contraindication to MRI). Any quantitative measurements of stenosis were performed using NASCET criteria. Dictated by: Edwin Richardson M.D. on 03/09/2023 at 12:09 Approved by: Edwin Richardson M.D. on 03/09/2023 at 12:11
--- NOTE | 2023-03-09 12:14 | ED_ITS ---
HPI - General Adult General Chief complaint: Neuro Symptoms/Deficit Stated complaint: stroke like sx Time Seen by Provider: 03/09/23 12:14 History of Present Illness HPI narrative: 32-year-old female nonsmoker with noncontributory chronic medical history presents by air medical transport for evaluation of neurologic symptoms that started suddenly this morning at about 9:00 a.m.. She states that she had been in her normal state of health and then noticed some blurring of vision in her right eye followed soon thereafter by some tingling in her right hand and then speech troubles and difficulty sending text messages to her . EMS was activated and found her with stable vitals normal blood sugar and essentially complete resolution of symptoms. In the aftermath she has a very vague, nonspecific headache but is otherwise well and free of complaint. She is taken directly to diagnostic imaging and activated as a code stroke. She is 6 weeks from an uneventful and vaginal delivery Related Data Home Medications Medication Instructions Recorded Confirmed prenat.vits,margarette,[id number] 1 tab PO DAILY 04/03/20 03/06/21 Previous Rx's Medication Instructions Recorded epinephrine 0.3 mg/0.3 mL 0.3 mg (0.3 mL) IM Q5-15M PRN 12/10/22 injection, auto-injector anaphylaxis #2 ea Allergies Allergy/AdvReac Type Severity Reaction Status Date / Time adhesive tape AdvReac Mild rash from Verified 08/21/21 13:49 dressings and bandaids bees Allergy Severe Anaphylaxis Uncoded 08/21/21 13:49 GLUTEN MEAL Allergy Unknown HAS CELIAC Uncoded 08/21/21 13:49 DISEASE, STAYS AWAY FROM GLUTEN Review of Systems Review of Systems Narrative: GENERAL: Denies chills, fatigue, malaise, fever, sweats. HEENT: Denies sinus pain, ear pain, sore throat, difficulty swallowing, dizziness. RESPIRATORY: Denies dyspnea, cough, wheezing, hemoptysis, sputum. CARDIOVASCULAR: Denies chest pain, palpitations, orthopnea, edema, GASTROINTESTINAL: Denies nausea, vomiting, abdominal pain, diarrhea, constipatio n, melena. : Denies dysuria, frequency, incontinence, hematuria, urinary retention. MUSCULOSKELETAL: denies weakness, joint pain, or bony pain SKIN: Denies rash, skin lesions, or other NEUROLOGIC: See HPI PSYCHIATRIC: No concerning psychosocial issues. 12 point review of systems is negative except for those stated above Patient History Medical History (Updated 03/09/23 @ 18:16 by Willian Braun DO) Anemia Anxiety Arthralgia of left temporomandibular joint Arthritis of facet joint of lumbar spine Bulging of intervertebral disc (~2012) CIDP (chronic inflammatory demyelinating polyneuropathy) (~2012) Elevated LFTs H/O being hospitalized (~2013) Hammer toe of second toe of right foot History of anaphylaxis Hyperhidrosis Lumbar radiculopathy MMN (multifocal motor neuropathy) Pernicious anemia PLMD (periodic limb movement disorder) Stomach ulcer (~2013) Tachycardia (~03/2020) Surgical History (Updated 03/18/21 @ 21:54 by Mary Alice Fish) Anesthesia H/O colonoscopy (~2003) History of esophagogastroduodenoscopy (EGD) (~2003) History of surgery (~2014) History of surgical removal of left nipple (~2003) [place] teeth removed (~2007) Family History (Updated 03/18/21 @ 21:56 by Mary Alice Fish) Mother Depression Anxiety Father Alcoholic Family estrangement Grandmother No problems noted. Grandfather No problems noted. 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 ; 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 special fang needs: No Smoking Status: Never smoker second hand exposure: Yes (growing up when her Dad was in the home) alcohol intake: former substance use type: does not use Smoking Status: Never smoker Exam Initial Vital Signs Initial Vital Signs: Vital Signs Temperature 98.4 F 03/09/23 12:16 Pulse Rate 79 03/09/23 12:16 Respiratory Rate 16 03/09/23 12:16 Blood Pressure 124/71 03/09/23 12:16 Pulse Oximetry 99 03/09/23 12:16 Oxygen Delivery Method Room Air 03/09/23 12:16 Course Orders Ordered: ED Orders 03/09/23 12:09 CT Stroke Stat 03/09/23 12:10 CT angio head and neck Stat 03/09/23 12:30 Urinalysis and Microscopic Stat Urine Drug Screen, Rapid Stat 03/09/23 12:35 COVID19 -Nasal RAPID Stat 03/09/23 12:36 Complete Blood Count AUTO DIFF Stat Comprehensive Metabolic Panel Stat Ethanol (ETOH) Stat PTT Partial Thromboplastin Ray Stat Prothrombin Time INR Stat Troponin & CK Cardiac Panel Stat 03/09/23 13:08 EKG-12 Lead Stat Acetaminophen (Acetaminophen 325 Mg Tablet) 650 mg PO Q6H PRN PRN Reason: Fever/Mild Pain (1-3) Aspirin (Aspirin Ec 81 Mg Tablet) 81 mg PO DAILY KRYSTIN Last Admin: 03/09/23 17:05 Dose: 81 mg Documented By: DOMINIC Naloxone HCl (Naloxone 0.4 Mg/Ml Vial) 0.2 mg IV Q2MIN PRN PRN Reason: Opiate Reversal Vital Signs Vital signs: Vital Signs - 8 hr 03/09/23 12:16 03/09/23 12:35 03/09/23 12:39 Temperature 98.4 F Pulse Rate 79 76 80 Respiratory Rate 16 20 41 H Blood Pressure 124/71 Pulse Oximetry 99 96 Oxygen Delivery Method Room Air 03/09/23 12:39 03/09/23 13:00 03/09/23 13:00 Temperature Pulse Rate 73 Respiratory Rate 21 Blood Pressure 124/71 104/58 L Pulse Oximetry 98 Oxygen Delivery Method 03/09/23 13:30 03/09/23 13:30 03/09/23 14:00 Temperature Pulse Rate 83 98 H Respiratory Rate 17 56 H Blood Pressure 108/77 Pulse Oximetry 98 98 Oxygen Delivery Method 03/09/23 14:01 03/09/23 14:01 03/09/23 14:30 Temperature Pulse Rate 97 H 73 Respiratory Rate 30 H 21 Blood Pressure 119/59 L Pulse Oximetry 96 98 Oxygen Delivery Method Medical Decision Making Lab Data 03/09/23 12:36 03/09/23 12:36 Labs: Lab Results 03/09/23 03/09/23 03/09/23 Range/Units 12:30 12:30 12:35 WBC (4.5-11.0) X10^3/uL RBC (4.0-5.2) X10^6/uL Hgb (12.0-16.0) g/dL Hct (36-46) % MCV (80-100) fL MCH (26-34) PG MCHC (30-36) % RDW (11.6-14.8) % Plt Count (150-400) X10^3/uL Neut % (Auto) (50-75) % Lymph % (Auto) (25-40) % [place] % (Auto) (3-14) % Eos % (Auto) (2-4) % Baso % (Auto) (0-2) % Neut # (Auto) (1686-0866) /uL Lymph # (Auto) (5161-0183) /uL [place] # (Auto) (0-900) /uL Eos # (Auto) (0-450) /uL Baso # (Auto) (0-100) /uL PT (10.1-12.7) SECONDS INR (0.9-1.3) APTT (26-36) SECONDS Sodium (137-145) mmol/L Potassium (3.4-5.1) mmol/L Chloride (98-107) mmol/L Carbon Dioxide (22-32) mmol/L BUN (7-17) mg/dL Creatinine (0.52-1.04) mg/dL Estimated GFR (>60) mL/min BUN/Creatinine Ratio (6-22) Glucose (70-100) mg/dL Hemoglobin A1c (4.0-6.0) % Calcium (8.4-10.2) mg/dL Magnesium (1.6-2.3) mg/dL Total Bilirubin (0.2-1.3) mg/dL AST (14-36) IU/L ALT (<35) IU/L Alkaline Phosphatase (38-126) U/L Total Creatine Kinase (30-135) U/L Troponin I (0.01-0.034) ng/mL Total Protein (6.3-8.2) g/dL Albumin (3.5-5.0) g/dL Globulin (1.7-4.1) g/dL Albumin/Globulin Ratio (1.0-2.8) Triglycerides (35-150) mg/dL Cholesterol (140-199) mg/dL LDL Cholesterol, Calc (<100) mg/dL HDL Cholesterol (40-60) mg/dL TSH (0.47-4.68) uIU/mL Urine Color Yellow Urine Appearance Clear Urine pH 5.5 (4.5-8.0) Ur Specific [place] <=1.005 (1.000-1.035) Urine Protein Negative (Negative) Urine Glucose (UA) Negative (Negative) g/dL Urine Ketones Negative (NEGATIVE) Urine Occult Blood Negative (Negative) Urine Nitrate Negative (Negative) Urine Bilirubin Negative (NEGATIVE) Urine Urobilinogen 0.2 (0.2) E.U./dL Ur Leukocyte Esterase Negative (NEGATIVE) Urine RBC None seen (0-5/HPF) Urine WBC None seen (0-5/HPF) Ur Squamous Epith Cells None seen (0-5/HPF) Urine Bacteria None seen (None) Ur Culture Indicated? Cult not indicated U Opiates 300ng/mL cut Negative (Negative) Ur Oxycodone Screen Negative (Negative) Urine Methadone Screen Negative (Negative) Ur Barbiturates Screen Negative (Negative) U Tricyclic Antidepress Negative (Negative) Ur Phencyclidine Scrn Negative (Negative) Ur Amphetamines Screen Negative (Negative) U Methamphetamines Scrn Negative (Negative) Ur MDMA Scrn (Ecstasy) Negative (Negative) U Benzodiazepines Scrn Negative (Negative) Urine Cocaine Screen Negative (Negative) U Marijuana (THC) Screen Negative (Negative) Ethyl Alcohol ( - 10) mg/dL SARS-CoV-2 (PCR) Negative (Negative) 03/09/23 03/09/23 03/09/23 Range/Units 12:36 12:36 12:36 WBC 8.4 (4.5-11.0) X10^3/uL RBC 3.87 L (4.0-5.2) X10^6/uL Hgb 12.3 (12.0-16.0) g/dL Hct 35.9 L (36-46) % MCV 92.8 (80-100) fL MCH 31.8 (26-34) PG MCHC 34.3 (30-36) % RDW 13.5 (11.6-14.8) % Plt Count 252 (150-400) X10^3/uL Neut % (Auto) 70.3 (50-75) % Lymph % (Auto) 21.1 L (25-40) % [place] % (Auto) 6.6 (3-14) % Eos % (Auto) 1.3 L (2-4) % Baso % (Auto) 0.7 (0-2) % Neut # (Auto) 5900 (7042-4557) /uL Lymph # (Auto) 1800 (1881-2156) /uL [place] # (Auto) 600 (0-900) /uL Eos # (Auto) 100 (0-450) /uL Baso # (Auto) 100 (0-100) /uL PT 12.6 (10.1-12.7) SECONDS INR 1.1 (0.9-1.3) APTT 32 (26-36) SECONDS Sodium 137 (137-145) mmol/L Potassium 4.2 (3.4-5.1) mmol/L Chloride 104 (98-107) mmol/L Carbon Dioxide 24 (22-32) mmol/L BUN 17 (7-17) mg/dL Creatinine 0.73 (0.52-1.04) mg/dL Estimated GFR > 60 (>60) mL/min BUN/Creatinine Ratio 23.3 H (6-22) Glucose 86 (70-100) mg/dL Hemoglobin A1c (4.0-6.0) % Calcium 8.5 (8.4-10.2) mg/dL Magnesium (1.6-2.3) mg/dL Total Bilirubin 0.5 (0.2-1.3) mg/dL AST 42 H (14-36) IU/L ALT 50 H (<35) IU/L Alkaline Phosphatase 55 (38-126) U/L Total Creatine Kinase 159 H (30-135) U/L Troponin I < 0.012 (0.01-0.034) ng/mL Total Protein 7.3 (6.3-8.2) g/dL Albumin 4.3 (3.5-5.0) g/dL Globulin 3.0 (1.7-4.1) g/dL Albumin/Globulin Ratio 1.4 (1.0-2.8) Triglycerides (35-150) mg/dL Cholesterol (140-199) mg/dL LDL Cholesterol, Calc (<100) mg/dL HDL Cholesterol (40-60) mg/dL TSH (0.47-4.68) uIU/mL Urine Color Urine Appearance Urine pH (4.5-8.0) Ur Specific [place] (1.000-1.035) Urine Protein (Negative) Urine Glucose (UA) (Negative) g/dL Urine Ketones (NEGATIVE) Urine Occult Blood (Negative) Urine Nitrate (Negative) Urine Bilirubin (NEGATIVE) Urine Urobilinogen (0.2) E.U./dL Ur Leukocyte Esterase (NEGATIVE) Urine RBC (0-5/HPF) Urine WBC (0-5/HPF) Ur Squamous Epith Cells (0-5/HPF) Urine Bacteria (None) Ur Culture Indicated? U Opiates 300ng/mL cut (Negative) Ur Oxycodone Screen (Negative) Urine Methadone Screen (Negative) Ur Barbiturates Screen (Negative) U Tricyclic Antidepress (Negative) Ur Phencyclidine Scrn (Negative) Ur Amphetamines Screen (Negative) U Methamphetamines Scrn (Negative) Ur MDMA Scrn (Ecstasy) (Negative) U Benzodiazepines Scrn (Negative) Urine Cocaine Screen (Negative) U Marijuana (THC) Screen (Negative) Ethyl Alcohol < 10 ( - 10) mg/dL SARS-CoV-2 (PCR) (Negative) 03/09/23 03/09/23 03/09/23 Range/Units 13:23 13:23 13:23 WBC (4.5-11.0) X10^3/uL RBC (4.0-5.2) X10^6/uL Hgb (12.0-16.0) g/dL Hct (36-46) % MCV (80-100) fL MCH (26-34) PG MCHC (30-36) % RDW (11.6-14.8) % Plt Count (150-400) X10^3/uL Neut % (Auto) (50-75) % Lymph % (Auto) (25-40) % [place] % (Auto) (3-14) % Eos % (Auto) (2-4) % Baso % (Auto) (0-2) % Neut # (Auto) (0311-0966) /uL Lymph # (Auto) (4552-2131) /uL [place] # (Auto) (0-900) /uL Eos # (Auto) (0-450) /uL Baso # (Auto) (0-100) /uL PT (10.1-12.7) SECONDS INR (0.9-1.3) APTT (26-36) SECONDS Sodium (137-145) mmol/L Potassium (3.4-5.1) mmol/L Chloride (98-107) mmol/L Carbon Dioxide (22-32) mmol/L BUN (7-17) mg/dL Creatinine (0.52-1.04) mg/dL Estimated GFR (>60) mL/min BUN/Creatinine Ratio (6-22) Glucose (70-100) mg/dL Hemoglobin A1c 4.9 (4.0-6.0) % Calcium (8.4-10.2) mg/dL Magnesium 2.0 (1.6-2.3) mg/dL Total Bilirubin (0.2-1.3) mg/dL AST (14-36) IU/L ALT (<35) IU/L Alkaline Phosphatase (38-126) U/L Total Creatine Kinase (30-135) U/L Troponin I (0.01-0.034) ng/mL Total Protein (6.3-8.2) g/dL Albumin (3.5-5.0) g/dL Globulin (1.7-4.1) g/dL Albumin/Globulin Ratio (1.0-2.8) Triglycerides (35-150) mg/dL Cholesterol (140-199) mg/dL LDL Cholesterol, Calc (<100) mg/dL HDL Cholesterol (40-60) mg/dL TSH 1.17 (0.47-4.68) uIU/mL Urine Color Urine Appearance Urine pH (4.5-8.0) Ur Specific [place] (1.000-1.035) Urine Protein (Negative) Urine Glucose (UA) (Negative) g/dL Urine Ketones (NEGATIVE) Urine Occult Blood (Negative) Urine Nitrate (Negative) Urine Bilirubin (NEGATIVE) Urine Urobilinogen (0.2) E.U./dL Ur Leukocyte Esterase (NEGATIVE) Urine RBC (0-5/HPF) Urine WBC (0-5/HPF) Ur Squamous Epith Cells (0-5/HPF) Urine Bacteria (None) Ur Culture Indicated? U Opiates 300ng/mL cut (Negative) Ur Oxycodone Screen (Negative) Urine Methadone Screen (Negative) Ur Barbiturates Screen (Negative) U Tricyclic Antidepress (Negative) Ur Phencyclidine Scrn (Negative) Ur Amphetamines Screen (Negative) U Methamphetamines Scrn (Negative) Ur MDMA Scrn (Ecstasy) (Negative) U Benzodiazepines Scrn (Negative) Urine Cocaine Screen (Negative) U Marijuana (THC) Screen (Negative) Ethyl Alcohol ( - 10) mg/dL SARS-CoV-2 (PCR) (Negative) 03/09/23 Range/Units 13:23 WBC (4.5-11.0) X10^3/uL RBC (4.0-5.2) X10^6/uL Hgb (12.0-16.0) g/dL Hct (36-46) % MCV (80-100) fL MCH (26-34) PG MCHC (30-36) % RDW (11.6-14.8) % Plt Count (150-400) X10^3/uL Neut % (Auto) (50-75) % Lymph % (Auto) (25-40) % [place] % (Auto) (3-14) % Eos % (Auto) (2-4) % Baso % (Auto) (0-2) % Neut # (Auto) (4011-9455) /uL Lymph # (Auto) (3065-0980) /uL [place] # (Auto) (0-900) /uL Eos # (Auto) (0-450) /uL Baso # (Auto) (0-100) /uL PT (10.1-12.7) SECONDS INR (0.9-1.3) APTT (26-36) SECONDS Sodium (137-145) mmol/L Potassium (3.4-5.1) mmol/L Chloride (98-107) mmol/L Carbon Dioxide (22-32) mmol/L BUN (7-17) mg/dL Creatinine (0.52-1.04) mg/dL Estimated GFR (>60) mL/min BUN/Creatinine Ratio (6-22) Glucose (70-100) mg/dL Hemoglobin A1c (4.0-6.0) % Calcium (8.4-10.2) mg/dL Magnesium (1.6-2.3) mg/dL Total Bilirubin (0.2-1.3) mg/dL AST (14-36) IU/L ALT (<35) IU/L Alkaline Phosphatase (38-126) U/L Total Creatine Kinase (30-135) U/L Troponin I (0.01-0.034) ng/mL Total Protein (6.3-8.2) g/dL Albumin (3.5-5.0) g/dL Globulin (1.7-4.1) g/dL Albumin/Globulin Ratio (1.0-2.8) Triglycerides 60 (35-150) mg/dL Cholesterol 204 H (140-199) mg/dL LDL Cholesterol, Calc 129 H (<100) mg/dL HDL Cholesterol 63 H (40-60) mg/dL TSH (0.47-4.68) uIU/mL Urine Color Urine Appearance Urine pH (4.5-8.0) Ur Specific [place] (1.000-1.035) Urine Protein (Negative) Urine Glucose (UA) (Negative) g/dL Urine Ketones (NEGATIVE) Urine Occult Blood (Negative) Urine Nitrate (Negative) Urine Bilirubin (NEGATIVE) Urine Urobilinogen (0.2) E.U./dL Ur Leukocyte Esterase (NEGATIVE) Urine RBC (0-5/HPF) Urine WBC (0-5/HPF) Ur Squamous Epith Cells (0-5/HPF) Urine Bacteria (None) Ur Culture Indicated? U Opiates 300ng/mL cut (Negative) Ur Oxycodone Screen (Negative) Urine Methadone Screen (Negative) Ur Barbiturates Screen (Negative) U Tricyclic Antidepress (Negative) Ur Phencyclidine Scrn (Negative) Ur Amphetamines Screen (Negative) U Methamphetamines Scrn (Negative) Ur MDMA Scrn (Ecstasy) (Negative) U Benzodiazepines Scrn (Negative) Urine Cocaine Screen (Negative) U Marijuana (THC) Screen (Negative) Ethyl Alcohol ( - 10) mg/dL SARS-CoV-2 (PCR) (Negative) Point of Care Testing Glucose POC 100 Point of care testing: Point of Care Testing Glucose POC 100 MDM Narrative Medical decision making narrative: 32-year-old female without significant medical history is 6 weeks post delivery and presents by air medical transport for neurologic symptoms as noted above. They started suddenly this morning and in many ways had improved prior to arrival but completely resolved even before imaging was acquired. Thankfully her evaluation is reassuring, there are no ongoing symptoms, imaging shows no significant abnormality. Discussed with on-call OB (Dr. Chavez), no specific OB concerns based on our results, happy to play a role in consultation should the hospitalist wish. Patient discussed with hospitalist (Dr. Stokes) who is happy to accept Discharge Plan Departure Patient Disposition: Admitted as Observation Clinical Impression: Brain TIA Admit Date/Time: 03/09/23 14:58 Admit Provider: Hector Stokes
[2023-03-09 12:45] LABS: Add Manual Diff / Slide Review NO; Basophils Absolute Auto 100 /uL (0-100); Basophils Percent Auto 0.7 % (0-2); Eosinophils Absolute Auto 100 /uL (0-450); Eosinophils Percent Auto 1.3 % (2-4); Hematocrit 35.9 % (36-46); Hemoglobin 12.3 g/dL (12.0-16.0); Lymphocytes Absolute Auto 1800 /uL (1100-4500); Lymphocytes Percent Auto 21.1 % (25-40); Mean Corpuscular HGB Conc 34.3 % (30-36); Mean Corpuscular Hemoglobin 31.8 PG (26-34); Mean Corpuscular Volume 92.8 fL (80-100); Monocytes Absolute Auto 600 /uL (0-900); Monocytes Percent Auto 6.6 % (3-14); Neutrophils Absolute Auto 5900 /uL (1500-7000); Neutrophils Percent Auto 70.3 % (50-75); Platelet Count 252 X10^3/uL (150-400); Red Blood Cell Count 3.87 X10^6/uL (4.0-5.2); Red Cell Distribution Width 13.5 % (11.6-14.8); White Blood Cell Count 8.4 X10^3/uL (4.5-11.0)
[2023-03-09 12:57] LABS: INR 1.1 (0.9-1.3); Prothrombin Time 12.6 SECONDS (10.1-12.7)
[2023-03-09 12:59] LABS: Appearance Urine UA CLEAR; Bilirubin Urine UA NEGATIVE (NEGATIVE); Color Urine UA YELLOW; Glucose Urine UA NEGATIVE (Negative); Ketones Urine UA NEGATIVE (NEGATIVE); Leukocyte Esterase Urine UA NEGATIVE (NEGATIVE); Nitrite Urine UA NEGATIVE (Negative); Occult Blood Urine UA NEGATIVE (Negative); Protein Urine UA NEGATIVE (Negative); Specific Gravity Urine UA <=1.005 (1.000-1.035); UR Morphine/Opiate cutoff 300 Negative (Negative); Ur Creatinine Normal (Normal); Ur Specific Gravity Normal (Normal); Urine Amphetamines Negative (Negative); Urine Barbiturates Negative (Negative); Urine Benzodiazepines Negative (Negative); Urine Cocaine Negative (Negative); Urine MDMA Negative (Negative); Urine Methadone Negative (Negative); Urine Methamphetamines Negative (Negative); Urine Phencyclidine Negative (Negative); Urine Tetrahydrocannabinol Negative (Negative); Urine Tricyclic Antidepressant Negative (Negative); Urine pH Normal (Normal); Urobilinogen Urine UA 0.2 E.U./dL (0.2)
[2023-03-09 13:00] LABS: Urine Oxycodone Negative (Negative)
[2023-03-09 13:00] LABS: PTT Partial Thromboplastin Tim 32 SECONDS (26-36)
[2023-03-09 13:02] LABS: Alanine Aminotransferase 50 IU/L (<35); Albumin 4.3 g/dL (3.5-5.0); Albumin Globulin Ratio 1.4 (1.0-2.8); Alkaline Phosphatase 55 U/L (38-126); Aspartate Aminotransferase 42 IU/L (14-36); BUN Creatinine Ratio 23.3 (6-22); Bilirubin Total 0.5 mg/dL (0.2-1.3); Blood Urea Nitrogen 17 mg/dL (7-17); Calcium 8.5 mg/dL (8.4-10.2); Carbon Dioxide 24 mmol/L (22-32); Chloride 104 mmol/L (98-107); Creatine Kinase 159 U/L (30-135); Estimated Glomerular Filt Rate > 60 mL/min (>60); Glucose 86 mg/dL (70-100); HEMOLYSIS < 15 (0-50); Potassium 4.2 mmol/L (3.4-5.1); Sodium 137 mmol/L (137-145); Total Protein 7.3 g/dL (6.3-8.2)
[2023-03-09 13:12] LABS: pH Urine UA 5.5 (4.5-8.0)
[2023-03-09 13:13] LABS: Troponin I < 0.012 ng/mL (0.01-0.034)
[2023-03-09 13:13] LABS: Bacteria Urine None Seen; Culture Indicated Urine Cult Not Indicated; RBC Urine None Seen (0-5/HPF); Squamous Epithelial Cell Urine None Seen (0-5/HPF); WBC Urine None Seen (0-5/HPF)
[2023-03-09 13:21] LABS: COVID19 -Nasal RAPID Negative (Negative)
[2023-03-09 13:56] LABS: Ethanol (ETOH) < 10 mg/dL
--- NOTE | 2023-03-09 15:26 | DI.ECHO.S_ITS ---
[facility] +---------+ : : [address] [place] [address] : : : : [id number] : : : : Phone: [phone] Echocardiogram Report + + :Name: ALANA LUNDY Study Date: 03/10/2023 Height: 68 in : :[facility] ReadingLocation: Weight: 157 lb : : Gender: Female BSA: 1.8 m2 : :: 1990 Age: 32 yrs BP: 101/58 mmHg: :Reason For Study: TIA : :Ordering Physician: LILIANA, : :MITCHELL Fowler Performed By: Gena Kowalski : :Referring: MITCHELL FORD : + + Interpretation Summary The ejection fraction is estimated to be 50-55%. Injection of contrast documented no interatrial shunt. There is no significant valvular heart disease. Procedure: A two-dimensional transthoracic echocardiogram with color flow and Doppler was performed. The study quality was technically adequate. There is no prior echocardiogram noted for this patient. A saline contrast injection was performed to assess for cardiac shunting. The patient was in sinus rhythm with heart rates between 62-71 bpm during the exam. Left Ventricle: The left ventricle is normal in size and wall thickness. The ejection fraction is estimated to be 50-55%. Left ventricular wall motion is normal. Right Ventricle: The right ventricle is normal in size and function. Atria: The left atrial size is normal. Right atrial size is normal. There is no Doppler evidence for an interatrial shunt. Injection of contrast documented no interatrial shunt. Mitral Valve: The mitral valve is normal in structure and function. There is trace mitral regurgitation. Aortic Valve: The aortic valve is trileaflet. The aortic valve opens well. There is no aortic valve stenosis. No aortic regurgitation is present. Tricuspid Valve: The tricuspid valve is normal in structure and function. There is trace tricuspid regurgitation. Pulmonic Valve: The pulmonic valve leaflets are thin and pliable; valve motion is normal. There is trace pulmonic regurgitation. Great Vessels: The aortic root is normal size. The ascending aorta could not be visualized. The IVC is of normal diameter and collapses greater than 50% with a sniff. This suggests a low right atrial pressure of 3 mm Hg. Pericardium/ Pleura There is no pericardial effusion. There is no pleural effusion. MMode/2D Measurements & Calculations LVIDd: 4.7 cm LVOT diam: 2.1 cm LVIDs: 3.2 cm Ao root diam: 2.6 cm FS: 32.9 % Ao Arch Diam (Prox Trans): 2.1 cm EPSS: 0.32 cm IVSd: 0.58 cm LVPWd: 0.74 cm LV wang. diameter/BSA (cm/m^2): 2.6 LV sys. diameter/BSA (cm/m^2): 1.7 LA A2 area: 12.5 cm2 RA long axis: 4.5 cm LA A4 area: 10.3 cm2 RA area: 12.6 cm2 LA length (vol): 3.8 cm RA vol: 30.5 ml LA vol: 28.8 ml RA : 16.5 ml/m2 LA vol index: 15.6 ml/m2 IVC diam: 0.95 cm RVD1 (basal): 3.5 cm RVD2 (mid): 2.9 cm TAPSE: 1.8 cm Doppler Measurements & Calculations Ao V2 max: 105.9 cm/sec LVOT Max Silvestre: 90.3 cm/sec Ao V2 mean: 74.0 cm/sec LV V1 max P.3 mmHg Ao max P.5 mmHg LV V1 VTI: 18.0 cm Ao mean P.4 mmHg LEODAN(I,D): 3.0 cm2 Ao V2 VTI: 20.6 cm LEODAN(V,D): 2.9 cm2 sev ratio: 0.88 LEODAN indexed to BSA (cm^2/m^2): 1.6 MV E max silvestre: 77.1 cm/sec PA V2 max: 94.6 cm/sec MV A max silvestre: 38.6 cm/sec PA V2 mean: 67.8 cm/sec MV E/A: 2.0 PA mean P.0 mmHg Med Peak E' Silvestre: 16.2 cm/sec PA pr(Accel): 12.2 mmHg E/E' med: 4.8 Lat Peak E' Silvestre: 20.8 cm/sec E/E' lat: 3.7 E/e' average: 4.2 MV dec time: 0.25 sec SV(LVOT): 61.6 ml Reading Physician:10:39 AM
--- NOTE | 2023-03-09 15:26 | DI.MRI.S_ITS ---
PROCEDURE: MR HEAD/BRAIN WO CON INDICATIONS: TIA-like symptoms TECHNIQUE: Noncontrast axial T1 spin echo, axial T2 fast spin echo, sagittal and axial FLAIR, coronal T2 fast spin echo, axial gradient echo, axial diffusion and ADC through the brain. COMPARISON: [facility], CT, CT STROKE, 03/09/2023, 12:19. [facility], CT, CT ANGIO HEAD AND NECK, 03/09/2023, 12:19. FINDINGS: Image quality: Excellent. CSF Spaces: Basal cisterns are patent. No extra-axial fluid collections. Ventricles are normal in size and shape. Brain: No intracranial masses or hemorrhage. Cain/white matter interface is normal. Brainstem appears normal. Diffusion-weighted images demonstrate no acute ischemic insult. No chronic ischemic insults. Normal intravascular flow voids are present. Skull and face: Calvarium has normal marrow signal. Orbits appear normal. Sinuses: Sinuses and mastoids are clear. IMPRESSION: No findings of acute or subacute infarction can be seen. Dictated by: Edwin Richardson M.D. on 03/09/2023 at 16:59 Approved by: Edwin Richardson M.D. on 03/09/2023 at 17:00
[2023-03-09 16:06] LABS: Cholesterol 204 mg/dL (140-199); HDL Cholesterol 63 mg/dL (40-60); LDL Cholesterol Calculated 129 mg/dL (<100); Triglycerides 60 mg/dL (35-150)
[2023-03-09 16:08] LABS: Hemoglobin A1C% w Est Avg Glu 4.9 % (4.0-6.0)
[2023-03-09 16:48] LABS: TSH w/ Reflex to FT4 1.17 uIU/mL (0.47-4.68)
[2023-03-09] MEDS: ASPIRIN EC 81 MG TABLET PO (17:05)
--- NOTE | 2023-03-09 18:20 | P.HP_ITS ---
History of Present Illness History of Present Illness Date Patient Seen: 03/09/23 Time Patient Seen: 16:00 Chief complaint: stroke like sx Narrative: Naman ?Tommy Blake is a 32-year-old female with past medical history of lumbar spine injury following tailbone trauma, chronic back pain, CIDP, anxiety, and elevated LFTs presents 6 weeks with acute TIA like symptoms. Patient states she was at home this morning and developed sudden-onset blurry vision in her right eye. She is attempting to text her about it and had trouble getting the words out in the text. She then began experiencing numbness in her right thumb and index finger. This all lasted about 30 minutes then resolved. Patient life-flighted in from [facility] for possible TIA. CT head and CTA head/neck were normal. NIH was 0. She currently feels well and denies any neurological complaints. and [id number] at bedside. [facility] Medical History (Updated 03/09/23 @ 18:16 by Willian Braun DO) Anemia Anxiety Arthralgia of left temporomandibular joint Arthritis of facet joint of lumbar spine Bulging of intervertebral disc (~2012) CIDP (chronic inflammatory demyelinating polyneuropathy) (~2012) Elevated LFTs H/O being hospitalized (~2013) Hammer toe of second toe of right foot History of anaphylaxis Hyperhidrosis Lumbar radiculopathy MMN (multifocal motor neuropathy) Pernicious anemia PLMD (periodic limb movement disorder) Stomach ulcer (~2013) Tachycardia (~03/2020) Surgical History (Updated 03/18/21 @ 21:54 by Mary Alice Fish) Anesthesia H/O colonoscopy (~2003) History of esophagogastroduodenoscopy (EGD) (~2003) History of surgery (~2014) History of surgical removal of left nipple (~2003) [place] teeth removed (~2007) Family History (Updated 03/18/21 @ 21:56 by Mary Alice Fish) Mother Depression Anxiety Father Alcoholic Family estrangement Grandmother No problems noted. Grandfather No problems noted. 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 ; 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 special fang needs: No Smoking Status: Never smoker second hand exposure: Yes (growing up when her Dad was in the home) alcohol intake: former substance use type: does not use Meds Home Medications and Allergies Home Medications Medication Instructions Recorded Confirmed Type prenat.vits,margarette,[id number] 1 tab PO DAILY 04/03/20 03/06/21 History epinephrine 0.3 mg/0.3 mL 0.3 mg (0.3 mL) IM Q5-15M PRN 12/10/22 Rx injection, auto-injector anaphylaxis #2 ea Allergies Allergy/AdvReac Type Severity Reaction Status Date / Time adhesive tape AdvReac Mild rash from Verified 08/21/21 13:49 dressings and bandaids bees Allergy Severe Anaphylaxis Uncoded 08/21/21 13:49 GLUTEN MEAL Allergy Unknown HAS CELIAC Uncoded 08/21/21 13:49 DISEASE, STAYS AWAY FROM GLUTEN Review of Systems Review of Systems Narrative: All other systems reviewed with the patient and are negative unless otherwise stated. Exam Vital Signs (past 8 hours): - 03/09/23 12:16 03/09/23 12:35 03/09/23 12:39 Temperature 98.4 F Pulse Rate 79 76 80 Respiratory Rate 16 20 41 H Blood Pressure 124/71 Pulse Oximetry 99 96 Oxygen Delivery Method Room Air Oxygen Flow Rate 03/09/23 12:39 03/09/23 13:00 03/09/23 13:00 Temperature Pulse Rate 73 Respiratory Rate 21 Blood Pressure 124/71 104/58 L Pulse Oximetry 98 Oxygen Delivery Method Oxygen Flow Rate 03/09/23 13:30 03/09/23 13:30 03/09/23 14:00 Temperature Pulse Rate 83 98 H Respiratory Rate 17 56 H Blood Pressure 108/77 Pulse Oximetry 98 98 Oxygen Delivery Method Oxygen Flow Rate 03/09/23 14:01 03/09/23 14:01 03/09/23 14:30 Temperature Pulse Rate 97 H 73 Respiratory Rate 30 H 21 Blood Pressure 119/59 L Pulse Oximetry 96 98 Oxygen Delivery Method Oxygen Flow Rate 03/09/23 15:40 Temperature 97.5 F L Pulse Rate 68 Respiratory Rate 16 Blood Pressure 124/79 Pulse Oximetry 98 Oxygen Delivery Method Oxygen Flow Rate 0 Oxygen Delivery Method Room Air Oxygen Flow Rate 0 Narrative Exam Narrative: GEN: no acute distress HEENT: moist mucous membranes, PERRL NECK: trachea midline, no JVD CV: regular rate and rhythm, no murmurs PULM: clear bilaterally ABD: soft, nontender, nondistended, no organomegaly EXT: warm and well perfused with no edema NEURO: awake, alert, oriented, no focal deficits Objective Labs 03/09/23 12:36 03/09/23 12:36 Labs: Laboratory Results - last 24 hr 03/09/23 03/09/23 03/09/23 12:30 12:30 12:35 WBC RBC Hgb Hct MCV MCH MCHC RDW Plt Count Neut % (Auto) Lymph % (Auto) [place] % (Auto) Eos % (Auto) Baso % (Auto) Neut # (Auto) Lymph # (Auto) [place] # (Auto) Eos # (Auto) Baso # (Auto) PT INR APTT Sodium Potassium Chloride Carbon Dioxide BUN Creatinine Estimated GFR BUN/Creatinine Ratio Glucose Hemoglobin A1c Calcium Magnesium Total Bilirubin AST ALT Alkaline Phosphatase Total Creatine Kinase Troponin I Total Protein Albumin Globulin Albumin/Globulin Ratio Triglycerides Cholesterol LDL Cholesterol, Calc HDL Cholesterol TSH Urine Color Yellow Urine Appearance Clear Urine pH 5.5 Ur Specific [place] <=1.005 Urine Protein Negative Urine Glucose (UA) Negative Urine Ketones Negative Urine Occult Blood Negative Urine Nitrate Negative Urine Bilirubin Negative Urine Urobilinogen 0.2 Ur Leukocyte Esterase Negative Urine RBC None seen Urine WBC None seen Ur Squamous Epith Cells None seen Urine Bacteria None seen Ur Culture Indicated? Cult not indicated U Opiates 300ng/mL cut Negative Ur Oxycodone Screen Negative Urine Methadone Screen Negative Ur Barbiturates Screen Negative U Tricyclic Antidepress Negative Ur Phencyclidine Scrn Negative Ur Amphetamines Screen Negative U Methamphetamines Scrn Negative Ur MDMA Scrn (Ecstasy) Negative U Benzodiazepines Scrn Negative Urine Cocaine Screen Negative U Marijuana (THC) Screen Negative Ethyl Alcohol SARS-CoV-2 (PCR) Negative 03/09/23 03/09/23 03/09/23 12:36 12:36 12:36 WBC 8.4 RBC 3.87 L Hgb 12.3 Hct 35.9 L MCV 92.8 MCH 31.8 MCHC 34.3 RDW 13.5 Plt Count 252 Neut % (Auto) 70.3 Lymph % (Auto) 21.1 L [place] % (Auto) 6.6 Eos % (Auto) 1.3 L Baso % (Auto) 0.7 Neut # (Auto) 5900 Lymph # (Auto) 1800 [place] # (Auto) 600 Eos # (Auto) 100 Baso # (Auto) 100 PT 12.6 INR 1.1 APTT 32 Sodium 137 Potassium 4.2 Chloride 104 Carbon Dioxide 24 BUN 17 Creatinine 0.73 Estimated GFR > 60 BUN/Creatinine Ratio 23.3 H Glucose 86 Hemoglobin A1c Calcium 8.5 Magnesium Total Bilirubin 0.5 AST 42 H ALT 50 H Alkaline Phosphatase 55 Total Creatine Kinase 159 H Troponin I < 0.012 Total Protein 7.3 Albumin 4.3 Globulin 3.0 Albumin/Globulin Ratio 1.4 Triglycerides Cholesterol LDL Cholesterol, Calc HDL Cholesterol TSH Urine Color Urine Appearance Urine pH Ur Specific [place] Urine Protein Urine Glucose (UA) Urine Ketones Urine Occult Blood Urine Nitrate Urine Bilirubin Urine Urobilinogen Ur Leukocyte Esterase Urine RBC Urine WBC Ur Squamous Epith Cells Urine Bacteria Ur Culture Indicated? U Opiates 300ng/mL cut Ur Oxycodone Screen Urine Methadone Screen Ur Barbiturates Screen U Tricyclic Antidepress Ur Phencyclidine Scrn Ur Amphetamines Screen U Methamphetamines Scrn Ur MDMA Scrn (Ecstasy) U Benzodiazepines Scrn Urine Cocaine Screen U Marijuana (THC) Screen Ethyl Alcohol < 10 SARS-CoV-2 (PCR) 03/09/23 03/09/23 03/09/23 13:23 13:23 13:23 WBC RBC Hgb Hct MCV MCH MCHC RDW Plt Count Neut % (Auto) Lymph % (Auto) [place] % (Auto) Eos % (Auto) Baso % (Auto) Neut # (Auto) Lymph # (Auto) [place] # (Auto) Eos # (Auto) Baso # (Auto) PT INR APTT Sodium Potassium Chloride Carbon Dioxide BUN Creatinine Estimated GFR BUN/Creatinine Ratio Glucose Hemoglobin A1c 4.9 Calcium Magnesium 2.0 Total Bilirubin AST ALT Alkaline Phosphatase Total Creatine Kinase Troponin I Total Protein Albumin Globulin Albumin/Globulin Ratio Triglycerides Cholesterol LDL Cholesterol, Calc HDL Cholesterol TSH 1.17 Urine Color Urine Appearance Urine pH Ur Specific [place] Urine Protein Urine Glucose (UA) Urine Ketones Urine Occult Blood Urine Nitrate Urine Bilirubin Urine Urobilinogen Ur Leukocyte Esterase Urine RBC Urine WBC Ur Squamous Epith Cells Urine Bacteria Ur Culture Indicated? U Opiates 300ng/mL cut Ur Oxycodone Screen Urine Methadone Screen Ur Barbiturates Screen U Tricyclic Antidepress Ur Phencyclidine Scrn Ur Amphetamines Screen U Methamphetamines Scrn Ur MDMA Scrn (Ecstasy) U Benzodiazepines Scrn Urine Cocaine Screen U Marijuana (THC) Screen Ethyl Alcohol SARS-CoV-2 (PCR) 03/09/23 13:23 WBC RBC Hgb Hct MCV MCH MCHC RDW Plt Count Neut % (Auto) Lymph % (Auto) [place] % (Auto) Eos % (Auto) Baso % (Auto) Neut # (Auto) Lymph # (Auto) [place] # (Auto) Eos # (Auto) Baso # (Auto) PT INR APTT Sodium Potassium Chloride Carbon Dioxide BUN Creatinine Estimated GFR BUN/Creatinine Ratio Glucose Hemoglobin A1c Calcium Magnesium Total Bilirubin AST ALT Alkaline Phosphatase Total Creatine Kinase Troponin I Total Protein Albumin Globulin Albumin/Globulin Ratio Triglycerides 60 Cholesterol 204 H LDL Cholesterol, Calc 129 H HDL Cholesterol 63 H TSH Urine Color Urine Appearance Urine pH Ur Specific [place] Urine Protein Urine Glucose (UA) Urine Ketones Urine Occult Blood Urine Nitrate Urine Bilirubin Urine Urobilinogen Ur Leukocyte Esterase Urine RBC Urine WBC Ur Squamous Epith Cells Urine Bacteria Ur Culture Indicated? U Opiates 300ng/mL cut Ur Oxycodone Screen Urine Methadone Screen Ur Barbiturates Screen U Tricyclic Antidepress Ur Phencyclidine Scrn Ur Amphetamines Screen U Methamphetamines Scrn Ur MDMA Scrn (Ecstasy) U Benzodiazepines Scrn Urine Cocaine Screen U Marijuana (THC) Screen Ethyl Alcohol SARS-CoV-2 (PCR) Assessment & Plan Assessment & Plan narrative: # possible TIA versus migraine -patient had 30 min of R blurry vision, word-finding difficulty and numbness of 1-2 digits on right hand. She also had a slight headache making atypical migraine a possibility. -CT/CTA head negative -MRI brain ordered -echo ordered -check A1c, lipids and TSH # 6 weeks -denies any issues with delivery or depression # lumbar injury and CIDP -manages pain with non-medications, CIDP in remission currently # anxiety -not on home meds Code status is full code. DVT prophylaxis with SCDs. Proxy is . I have reviewed home meds and used all available resources to reconcile the home meds. Case discussed with ED physician/APC and patient will be admitted to the hospit alist service for further workup and management. This patient will be admitted as observation and will require less than 2 midnights of hospital time to treat possible TIA. Quality VTE Deep Vein Thrombosis/Pulmonary Embolism Present on Admission: No
[2023-03-10] VITALS: BP 98/52; PULSE 79; RESP 19; TEMP 36.5; O2SAT 98
[2023-03-10 04:00] VITALS: BP 101/58; PULSE 86; RESP 18; TEMP 36.7; O2SAT 100
[2023-03-10 06:01] LABS: Add Manual Diff / Slide Review NO; Basophils Absolute Auto 100 /uL (0-100); Basophils Percent Auto 1.1 % (0-2); Eosinophils Absolute Auto 200 /uL (0-450); Eosinophils Percent Auto 3.8 % (2-4); Hematocrit 36.2 % (36-46); Hemoglobin 12.2 g/dL (12.0-16.0); Lymphocytes Absolute Auto 2300 /uL (1100-4500); Lymphocytes Percent Auto 37.7 % (25-40); Mean Corpuscular HGB Conc 33.7 % (30-36); Mean Corpuscular Hemoglobin 31.6 PG (26-34); Mean Corpuscular Volume 93.7 fL (80-100); Monocytes Absolute Auto 600 /uL (0-900); Monocytes Percent Auto 9.1 % (3-14); Neutrophils Absolute Auto 3000 /uL (1500-7000); Neutrophils Percent Auto 48.3 % (50-75); Platelet Count 216 X10^3/uL (150-400); Red Blood Cell Count 3.86 X10^6/uL (4.0-5.2); Red Cell Distribution Width 13.4 % (11.6-14.8); White Blood Cell Count 6.2 X10^3/uL (4.5-11.0)
[2023-03-10 06:13] LABS: Alanine Aminotransferase 48 IU/L (<35); Albumin Globulin Ratio 1.3 (1.0-2.8); Alkaline Phosphatase 53 U/L (38-126); Aspartate Aminotransferase 38 IU/L (14-36); BUN Creatinine Ratio 22.9 (6-22); Bilirubin Total 0.6 mg/dL (0.2-1.3); Blood Urea Nitrogen 16 mg/dL (7-17); Calcium 8.4 mg/dL (8.4-10.2); Carbon Dioxide 22 mmol/L (22-32); Chloride 107 mmol/L (98-107); Estimated Glomerular Filt Rate > 60 mL/min (>60); Glucose 86 mg/dL (70-100); HEMOLYSIS < 15 (0-50); Sodium 137 mmol/L (137-145)
[2023-03-10] MEDS: SODIUM CHLORIDE 0.9% FLUSH 10 ML IV (09:32)
--- NOTE | 2023-03-10 11:05 | P.DS_ITS ---
History of Present Illness History of Present Illness Date Patient Seen: 03/09/23 Time Patient Seen: 16:00 Chief complaint: stroke like sx Narrative: Naman ?Tommy Blake is a 32-year-old female with past medical history of lumbar spine injury following tailbone trauma, chronic back pain, CIDP, anxiety, and elevated LFTs presents 6 weeks with acute TIA like symptoms. Patient states she was at home this morning and developed sudden-onset blurry vision in her right eye. She is attempting to text her about it and had trouble getting the words out in the text. She then began experiencing numbness in her right thumb and index finger. This all lasted about 30 minutes then resolved. Patient life-flighted in from [facility] for possible TIA. CT head and CTA head/neck were normal. NIH was 0. She currently feels well and denies any neurological complaints. and [id number] at bedside. Discharge Providers Provider Date of admission: 03/09/23 14:58 Discharge Date: 03/10/23 Primary care physician: Maria D Fontenot PA-C Discharge provider: Hector Stokes DO Summary Hospital Course Discharge Diagnosis: # possible TIA, but more likely atypical migraine -patient had 30 min of R blurry vision, word-finding difficulty and numbness of 1-2 digits on right hand. She also had a slight headache making atypical migraine a possibility. -CT/CTA head negative -MRI brain normal -echo normal -A1c 4.9%, lipids elevated with LDL 129 and Tchol 204, TSH 1.17 -patient recommended to see her PCP about migraine prevention/abortive therapy if she continues having these episodes # 6 weeks -denies any issues with delivery or depression # lumbar injury and CIDP -manages pain with non-medications, CIDP in remission currently # anxiety -not on home meds Hospital Course: Admitted for possible TIA-like symptoms described above. Had completely negative workup including CT head, MRI brain, and echo. Suspect her symptoms were more likely due to an atypical migraine. She will f/u with PCP if these episodes continue to discuss migraine treatments. Exam Vital Signs (past 8 hours): - 03/10/23 04:00 Temperature 98.0 F Pulse Rate 86 Respiratory Rate 18 Blood Pressure 101/58 L Pulse Oximetry 100 Oxygen Delivery Method Room Air Oxygen Flow Rate 0 Narrative Exam Narrative: GEN: no acute distress HEENT: moist mucous membranes, PERRL NECK: trachea midline, no JVD CV: regular rate and rhythm, no murmurs PULM: clear bilaterally ABD: soft, nontender, nondistended, no organomegaly EXT: warm and well perfused with no edema NEURO: awake, alert, oriented, no focal deficits Objective Labs 03/10/23 05:05 03/10/23 05:05 Labs: Laboratory Results - last 24 hr 03/09/23 03/09/23 03/09/23 12:30 12:30 12:35 WBC RBC Hgb Hct MCV MCH MCHC RDW Plt Count Neut % (Auto) Lymph % (Auto) [place] % (Auto) Eos % (Auto) Baso % (Auto) Neut # (Auto) Lymph # (Auto) [place] # (Auto) Eos # (Auto) Baso # (Auto) PT INR APTT Sodium Potassium Chloride Carbon Dioxide BUN Creatinine Estimated GFR BUN/Creatinine Ratio Glucose Hemoglobin A1c Calcium Magnesium Total Bilirubin AST ALT Alkaline Phosphatase Total Creatine Kinase Troponin I Total Protein Albumin Globulin Albumin/Globulin Ratio Triglycerides Cholesterol LDL Cholesterol, Calc HDL Cholesterol TSH Urine Color Yellow Urine Appearance Clear Urine pH 5.[address] [place] <=1.005 Urine Protein Negative Urine Glucose (UA) Negative Urine Ketones Negative Urine Occult Blood Negative Urine Nitrate Negative Urine Bilirubin Negative Urine Urobilinogen 0.2 Ur Leukocyte Esterase Negative Urine RBC None seen Urine WBC None seen Ur Squamous Epith Cells None seen Urine Bacteria None seen Ur Culture Indicated? Cult not indicated U Opiates 300ng/mL cut Negative Ur Oxycodone Screen Negative Urine Methadone Screen Negative Ur Barbiturates Screen Negative U Tricyclic Antidepress Negative Ur Phencyclidine Scrn Negative Ur Amphetamines Screen Negative U Methamphetamines Scrn Negative Ur MDMA Scrn (Ecstasy) Negative U Benzodiazepines Scrn Negative Urine Cocaine Screen Negative U Marijuana (THC) Screen Negative Ethyl Alcohol SARS-CoV-2 (PCR) Negative 03/09/23 03/09/23 03/09/23 12:36 12:36 12:36 WBC 8.4 RBC 3.87 L Hgb 12.3 Hct 35.9 L MCV 92.8 MCH 31.8 MCHC 34.3 RDW 13.5 Plt Count 252 Neut % (Auto) 70.3 Lymph % (Auto) 21.1 L [place] % (Auto) 6.6 Eos % (Auto) 1.3 L Baso % (Auto) 0.7 Neut # (Auto) 5900 Lymph # (Auto) 1800 [place] # (Auto) 600 Eos # (Auto) 100 Baso # (Auto) 100 PT 12.6 INR 1.1 APTT 32 Sodium 137 Potassium 4.2 Chloride 104 Carbon Dioxide 24 BUN 17 Creatinine 0.73 Estimated GFR > 60 BUN/Creatinine Ratio 23.3 H Glucose 86 Hemoglobin A1c Calcium 8.5 Magnesium Total Bilirubin 0.5 AST 42 H ALT 50 H Alkaline Phosphatase 55 Total Creatine Kinase 159 H Troponin I < 0.012 Total Protein 7.3 Albumin 4.3 Globulin 3.0 Albumin/Globulin Ratio 1.4 Triglycerides Cholesterol LDL Cholesterol, Calc HDL Cholesterol TSH Urine Color Urine Appearance Urine pH Ur Specific [place] Urine Protein Urine Glucose (UA) Urine Ketones Urine Occult Blood Urine Nitrate Urine Bilirubin Urine Urobilinogen Ur Leukocyte Esterase Urine RBC Urine WBC Ur Squamous Epith Cells Urine Bacteria Ur Culture Indicated? U Opiates 300ng/mL cut Ur Oxycodone Screen Urine Methadone Screen Ur Barbiturates Screen U Tricyclic Antidepress Ur Phencyclidine Scrn Ur Amphetamines Screen U Methamphetamines Scrn Ur MDMA Scrn (Ecstasy) U Benzodiazepines Scrn Urine Cocaine Screen U Marijuana (THC) Screen Ethyl Alcohol < 10 SARS-CoV-2 (PCR) 03/09/23 03/09/23 03/09/23 13:23 13:23 13:23 WBC RBC Hgb Hct MCV MCH MCHC RDW Plt Count Neut % (Auto) Lymph % (Auto) [place] % (Auto) Eos % (Auto) Baso % (Auto) Neut # (Auto) Lymph # (Auto) [place] # (Auto) Eos # (Auto) Baso # (Auto) PT INR APTT Sodium Potassium Chloride Carbon Dioxide BUN Creatinine Estimated GFR BUN/Creatinine Ratio Glucose Hemoglobin A1c 4.9 Calcium Magnesium 2.0 Total Bilirubin AST ALT Alkaline Phosphatase Total Creatine Kinase Troponin I Total Protein Albumin Globulin Albumin/Globulin Ratio Triglycerides Cholesterol LDL Cholesterol, Calc HDL Cholesterol TSH 1.17 Urine Color Urine Appearance Urine pH Ur Specific [place] Urine Protein Urine Glucose (UA) Urine Ketones Urine Occult Blood Urine Nitrate Urine Bilirubin Urine Urobilinogen Ur Leukocyte Esterase Urine RBC Urine WBC Ur Squamous Epith Cells Urine Bacteria Ur Culture Indicated? U Opiates 300ng/mL cut Ur Oxycodone Screen Urine Methadone Screen Ur Barbiturates Screen U Tricyclic Antidepress Ur Phencyclidine Scrn Ur Amphetamines Screen U Methamphetamines Scrn Ur MDMA Scrn (Ecstasy) U Benzodiazepines Scrn Urine Cocaine Screen U Marijuana (THC) Screen Ethyl Alcohol SARS-CoV-2 (PCR) 03/09/23 03/10/23 03/10/23 13:23 05:05 05:05 WBC 6.2 RBC 3.86 L Hgb 12.2 Hct 36.2 MCV 93.7 MCH 31.6 MCHC 33.7 RDW 13.4 Plt Count 216 Neut % (Auto) 48.3 L D Lymph % (Auto) 37.7 [place] % (Auto) 9.1 Eos % (Auto) 3.8 Baso % (Auto) 1.1 Neut # (Auto) 3000 Lymph # (Auto) 2300 [place] # (Auto) 600 Eos # (Auto) 200 Baso # (Auto) 100 PT INR APTT Sodium 137 Potassium 4.0 Chloride 107 Carbon Dioxide 22 BUN 16 Creatinine 0.70 Estimated GFR > 60 BUN/Creatinine Ratio 22.9 H Glucose 86 Hemoglobin A1c Calcium 8.4 Magnesium Total Bilirubin 0.6 AST 38 H ALT 48 H Alkaline Phosphatase 53 Total Creatine Kinase Troponin I Total Protein 7.0 Albumin 4.0 Globulin 3.0 Albumin/Globulin Ratio 1.3 Triglycerides 60 Cholesterol 204 H LDL Cholesterol, Calc 129 H HDL Cholesterol 63 H TSH Urine Color Urine Appearance Urine pH Ur Specific [place] Urine Protein Urine Glucose (UA) Urine Ketones Urine Occult Blood Urine Nitrate Urine Bilirubin Urine Urobilinogen Ur Leukocyte Esterase Urine RBC Urine WBC Ur Squamous Epith Cells Urine Bacteria Ur Culture Indicated? U Opiates 300ng/mL cut Ur Oxycodone Screen Urine Methadone Screen Ur Barbiturates Screen U Tricyclic Antidepress Ur Phencyclidine Scrn Ur Amphetamines Screen U Methamphetamines Scrn Ur MDMA Scrn (Ecstasy) U Benzodiazepines Scrn Urine Cocaine Screen U Marijuana (THC) Screen Ethyl Alcohol SARS-CoV-2 (PCR) [facility] Medical History (Updated 03/09/23 @ 18:16 by Willina Braun DO) Anemia Anxiety Arthralgia of left temporomandibular joint Arthritis of facet joint of lumbar spine Bulging of intervertebral disc (~2012) CIDP (chronic inflammatory demyelinating polyneuropathy) (~2012) Elevated LFTs H/O being hospitalized (~2013) Hammer toe of second toe of right foot History of anaphylaxis Hyperhidrosis Lumbar radiculopathy MMN (multifocal motor neuropathy) Pernicious anemia PLMD (periodic limb movement disorder) Stomach ulcer (~2013) Tachycardia (~03/2020) Surgical History (Updated 03/18/21 @ 21:54 by Mary Alice Fish) Anesthesia H/O colonoscopy (~2003) History of esophagogastroduodenoscopy (EGD) (~2003) History of surgery (~2014) History of surgical removal of left nipple (~2003) [place] teeth removed (~2007) Family History (Updated 03/18/21 @ 21:56 by Mary Alice Fish) Mother Depression Anxiety Father Alcoholic Family estrangement Grandmother No problems noted. Grandfather No problems noted. Grandmother COPD (chronic obstructive pulmonary disease) Heavy smoker Family estrangement Family/Other Multiple sclerosis Grandfather Alcoholic Family estrangement Family/Other Breast cancer Brother Alcoholic Mental health problem Social History (Updated 01/24/23 @ 23:25 by Monet Daniel, BE, SENIOR STAFF ACCOUNTANT) marital status: number of children: 1 household members: spouse and children lives independently: Yes housing: house pets and animals: Yes (X 1 dog and chickens and a rabbit) occupational status: employed current occupational exposures/hazards: Yes Previous occupational history: Seasonal Job Community Development Coordinator X 2 days ; 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 I will call you with your echo results. I believe your symptoms were most likely due to anxiety or a migraine. Discharge orders & Medications Prescriptions: Continued epinephrine 0.3 mg/0.3 mL auto-injector 0.3 mg IM Q5-15M PRN (Reason: anaphylaxis) Qty: 2 2RF Rx Instructions: do not exceed 3 doses per episode No Action cyanocobalamin (vitamin B-12) 1,000 mcg/mL solution 100 mcg IM QMONTH Qty: 10 0RF Follow up/Referrals: Maria D Fontenot PA-C [Primary Care Provider] - 2 Weeks Visit Report/Discharge Packet Stand Alone Forms: Patient Portal/API, Stroke Signs & Symptoms Discharge Data Primary Care Provider: Maria D Fontenot Attending Provider: Hector Stokes Admit Date/Time: 03/09/23 14:58 Discharges patient from system. Discharge Date/Time: 03/10/23 11:05 Quality VTE Deep Vein Thrombosis/Pulmonary Embolism Present on Admission: No
--- NOTE | 2023-03-10 12:13 | CM.DANOTE ---
DCP Assessment Note: Patient is a 32yo F here for stroke like symptoms. PCP Maria D Fontenot ([facility]) [facility] MANAGER COMMERCIAL reviewed EMR. Per provider, patient likely to be medically stable to d/c today. MANAGER COMMERCIAL entered room and introduced self and role. Patient was breast feeding baby Micah and was accompanied by MIL at bedside. Patient is active/independent at baseline and drives. Lives with spouse Demetrius ([phone]) and two young children. Patient reports being excited to go home. No needs at this time. Plan: patient will d/c home with family. Transport via POV/ferry. No needs identified at this time. CM team will continue to follow as needed. MARCELINO Rivas Discharge Planning/Care Management CM Discharge Assessment Start: 03/10/23 12:10 Freq: Status: Active Protocol: Document 03/10/23 12:11 (Rec: 03/10/23 12:13 [id number]) Discharge Planning Assessment Assigned Hearing Screen Coordinator MARCELINO Palacio DPOA/Assigned Designee Name Giovanny Blake (spouse) Contact Information [phone] Advance Directives? No History Provided By Patient,Medical Record Prior Living Arrangements House Household Members spouse,children Comment spouse, young child, and 6 week old baby Type of transporation used prior to Drives own vehicle admit Independent with ADL's Yes Is patient alert and oriented? Yes Caregiver for Another Yes: young children Barriers to Discharge No Discharge Plan Home Transportation Arrangement family in POV/ferry Whiteboard Updated in Patient Room with Yes name and ext. # of Hearing Screen Coordinator Review Status In Process Next Review Type Continued Stay Review
[2023-03-11 06:03] LABS: HBsAg Screen Negative (Negative); Hepatitis A Antibody IgM Negative (Negative); Hepatitis B Core Antibody IgM Negative (Negative); Hepatitis C Antibody Non Reactive (Non Reactive)
== END 2023-03-10 11:05 | disposition home or self-care (01) ==
LOC: ED 12:32 → AC 14:59
PROVIDERS: Admitting Provider Student in an Organized Health Care Education/Training Program; Emergency Provider Emergency Medicine; PCP Physician Assistant; Referring Provider Emergency Medicine; Visit Provider Student in an Organized Health Care Education/Training Program
DX: H53.8 Other visual disturbances (principal); F41.9 Anxiety disorder, unspecified; R51.9 Headache, unspecified; R20.0 Anesthesia of skin; Z20.822 Contact with and (suspected) exposure to COVID-19
CPT/HCPCS: 36415; 70450; 70496; 70498; 70551; 80053; 80061; 80074; 80305; 80320; 81001; 82550; 82962; 83036; 83735; 84443; 84484; 85025; 85610; 85730; 87635; 93005; 93306; 99285; C9803; G0378

== ENCOUNTER → 2023-04-07 12:22 | Outpatient (CLI) | payer OTHER, MEDICAID, SELFPAY ==
[2023-03-09 15:16] VITALS: BMI 23.8
--- NOTE | 2023-04-07 12:24 | DI.US.S_ITS ---
PROCEDURE: US ABDOMEN LIMITED INDICATIONS: ELEVATED LIVER FUNCTION TESTS AND RIGHT UPPER QUADRANT PAIN TECHNIQUE: Real-time focused scanning was performed of the abdomen, with image documentation. COMPARISON: None. FINDINGS: The liver demonstrates enlarged size. The liver demonstrates generalized mildly increased echogenicity. This decreases ultrasound sensitivity for detection of hepatic masses. Hepatopetal No findings of gallstones or sludge are seen. The gallbladder wall is not thickened, measuring 3 mm or less. No specific pericholecystic fluid is seen. The sonographic Evans sign is negative. There is no biliary dilatation, the common bile duct measures 3 mm. No significant pancreatic abnormality is seen on these images. IMPRESSION: The liver demonstrates increased echogenicity. This finding is nonspecific, yet it is most commonly attributed to fatty infiltration. The gallbladder demonstrates a normal sonographic appearance. No biliary dilatation is seen. Dictated by: Edwin Richardson M.D. on 04/07/2023 at 12:13 Approved by: Edwin Richardson M.D. on 04/07/2023 at 12:14
== END ==
PROVIDERS: PCP Physician Assistant; Referring Provider Family Medicine; Visit Provider Family Medicine
DX: R10.11 Right upper quadrant pain (principal); R74.01 Elevation of levels of liver transaminase levels
CPT/HCPCS: 76705

== ENCOUNTER → 2023-07-28 09:37 | Outpatient (CLI) | payer OTHER, MEDICAID, SELFPAY ==
[2023-03-09 15:16] VITALS: BMI 23.8
[2023-07-28 19:16] LABS: Hematocrit 37.8 % (36-46); Hemoglobin 12.8 g/dL (12.0-16.0); Mean Corpuscular HGB Conc 33.8 % (30-36); Mean Corpuscular Hemoglobin 31.4 PG (26-34); Mean Corpuscular Volume 92.7 fL (80-100); Platelet Count 296 X10^3/uL (150-400); Red Blood Cell Count 4.08 X10^6/uL (4.0-5.2); Red Cell Distribution Width 13.4 % (11.6-14.8); White Blood Cell Count 5.8 X10^3/uL (4.5-11.0)
[2023-07-28 19:19] LABS: INR 1.1 (0.9-1.3); Prothrombin Time 12.6 SECONDS (9.4-12.5)
[2023-07-28 19:22] LABS: Alanine Aminotransferase 19 IU/L (<35); Albumin 4.6 g/dL (3.5-5.0); Albumin Globulin Ratio 1.5 (1.0-2.8); Alkaline Phosphatase 53 U/L (38-126); Aspartate Aminotransferase 22 IU/L (14-36); BUN Creatinine Ratio 23.9 (6-22); Bilirubin Total 0.8 mg/dL (0.2-1.3); Blood Urea Nitrogen 16 mg/dL (7-17); Calcium 9.8 mg/dL (8.4-10.2); Carbon Dioxide 24 mmol/L (22-32); Chloride 105 mmol/L (98-107); Estimated Glomerular Filt Rate > 60 mL/min (>60); Glucose 82 mg/dL (70-100); HEMOLYSIS < 15 (0-50); Potassium 3.9 mmol/L (3.4-5.1); Sodium 139 mmol/L (137-145); Total Protein 7.6 g/dL (6.3-8.2)
[2023-07-30 00:27] LABS: Hepatitis A Antibody Total Positive (Negative)
[2023-07-30 05:52] LABS: Alpha 1 Anti Trypsin 128 mg/dL (100-188); Ceruloplasmin 22.3 mg/dL (19.0-39.0); Hepatitis B Surf Ab Qualitativ Reactive (.); Immunoglobulin A 134 mg/dL (87-352)
[2023-07-30 15:36] LABS: Tissue Transglutaminase IgA <2 U/mL (0-3)
[2023-07-30 17:27] LABS: Smooth Muscle Antibody 8 Units (0-19)
[2023-07-31 15:31] LABS: ANA Screen, IFA Negative (.)
== END ==
PROVIDERS: PCP Family Medicine; Visit Provider Physician Assistant
DX: R74.8 Abnormal levels of other serum enzymes (principal); K76.0 Fatty (change of) liver, not elsewhere classified; K90.0 Celiac disease
CPT/HCPCS: 80053; 82103; 82390; 82784; 83516; 85027; 85610; 86038; 86376; 86706; 86708

== ENCOUNTER → 2024-03-30 12:57 | Outpatient (CLI) | payer OTHER, MEDICAID, SELFPAY ==
[2023-03-09 15:16] VITALS: BMI 23.8
[2024-03-30 19:34] LABS: HEMOLYSIS 21 (0-50)
[2024-03-30 19:37] LABS: Add Manual Diff / Slide Review NO; Basophils Absolute Auto 200 /uL (0-100); Basophils Percent Auto 3.4 % (0-2); Eosinophils Absolute Auto 100 /uL (0-450); Eosinophils Percent Auto 2.1 % (2-4); Hematocrit 37.9 % (36-46); Lymphocytes Absolute Auto 1700 /uL (1100-4500); Lymphocytes Percent Auto 32.7 % (25-40); Mean Corpuscular HGB Conc 34.3 % (30-36); Mean Corpuscular Hemoglobin 32.6 PG (26-34); Mean Corpuscular Volume 94.9 fL (80-100); Monocytes Absolute Auto 300 /uL (0-900); Monocytes Percent Auto 6.4 % (3-14); Neutrophils Absolute Auto 2800 /uL (1500-7000); Neutrophils Percent Auto 55.4 % (50-75); Platelet Count 279 X10^3/uL (150-400); Red Cell Distribution Width 13.7 % (11.6-14.8); White Blood Cell Count 5.1 X10^3/uL (4.5-11.0)
[2024-03-30 19:39] LABS: Alanine Aminotransferase 18 IU/L (<35); Albumin 4.4 g/dL (3.5-5.0); Albumin Globulin Ratio 1.5 (1.0-2.8); Alkaline Phosphatase 60 U/L (38-126); Aspartate Aminotransferase 29 IU/L (14-36); BUN Creatinine Ratio 25.4 (6-22); Bilirubin Total 0.6 mg/dL (0.2-1.3); Blood Urea Nitrogen 16 mg/dL (7-17); Calcium 9.5 mg/dL (8.4-10.2); Carbon Dioxide 25 mmol/L (22-32); Chloride 105 mmol/L (98-107); Estimated Glomerular Filt Rate > 60 mL/min (>60); Globulin 2.9 g/dL (1.7-4.1); Glucose 99 mg/dL (70-100); Potassium 3.9 mmol/L (3.4-5.1); Sodium 139 mmol/L (137-145); Total Protein 7.3 g/dL (6.3-8.2)
[2024-03-30 20:01] LABS: Vitamin D 25 Hydroxy (D3) 56.1 ng/mL (30.0-100.0)
[2024-03-30 20:14] LABS: TSH w/ Reflex to FT4 1.38 uIU/mL (0.47-4.68)
[2024-03-30 20:16] LABS: Ferritin 72 ng/mL (6-137)
[2024-03-30 20:33] LABS: Vitamin B12 945 pg/mL (239-931)
[2024-03-31 02:34] LABS: LDL Cholesterol Direct 94 mg/dL (<100)
== END ==
PROVIDERS: PCP Family Medicine; Visit Provider Family Medicine
DX: D51.9 Vitamin B12 deficiency anemia, unspecified (principal); D51.0 Vitamin B12 deficiency anemia due to intrinsic factor deficiency; K76.0 Fatty (change of) liver, not elsewhere classified; E78.2 Mixed hyperlipidemia; K90.0 Celiac disease
CPT/HCPCS: 80053; 82306; 82607; 82728; 83721; 84443; 85025

== ENCOUNTER → 2025-05-06 08:43 | Outpatient (CLI) | payer OTHER, SELFPAY ==
[2025-04-25 14:35] VITALS: BMI 23.8
[2025-05-06 19:29] LABS: Hematocrit 39.1 % (36-46); Hemoglobin 13.4 g/dL (12.0-16.0); Mean Corpuscular HGB Conc 34.3 % (30-36); Mean Corpuscular Hemoglobin 32.8 PG (26-34); Mean Corpuscular Volume 95.7 fL (80-100); Platelet Count 310 X10^3/uL (150-400)
[2025-05-06 19:40] LABS: Alanine Aminotransferase 20 IU/L (<35); Albumin 4.5 g/dL (3.5-5.0); Albumin Globulin Ratio 1.5 (1.0-2.8); Alkaline Phosphatase 46 U/L (38-126); Blood Urea Nitrogen 16 mg/dL (7-17); Calcium 9.2 mg/dL (8.4-10.2); Carbon Dioxide 23 mmol/L (22-32); Chloride 104 mmol/L (98-107); Cholesterol 200 mg/dL (140-199); Estimated Glomerular Filt Rate > 60 mL/min (>60); Globulin 3.0 g/dL (1.7-4.1); Glucose 72 mg/dL (70-99); HDL Cholesterol 81 mg/dL (40-60); HEMOLYSIS < 15 (0-50); Potassium 4.0 mmol/L (3.4-5.1); Sodium 137 mmol/L (137-145); Total Protein 7.5 g/dL (6.3-8.2); Triglycerides 184 mg/dL (35-150)
[2025-05-06 19:51] LABS: Vitamin D 25 Hydroxy (D3) 29.5 ng/mL (30.0-100.0)
[2025-05-06 19:52] LABS: HCG Quantitative /Beta subunit < 2.39 mIU/mL
[2025-05-06 20:05] LABS: Thyroid Stimulating Hormone 1.56 uIU/mL (0.47-4.68)
[2025-05-06 20:06] LABS: Cortisol AM (Before 10AM) 17.2 ug/dL (4.46-22.7)
[2025-05-06 20:10] LABS: Ferritin 60 ng/mL (6-137)
[2025-05-06 20:24] LABS: Vitamin B12 465 pg/mL (239-931)
== END ==
PROVIDERS: PCP Family Medicine; Visit Provider Family Medicine
DX: R53.83 Other fatigue (principal); D51.0 Vitamin B12 deficiency anemia due to intrinsic factor deficiency; K76.0 Fatty (change of) liver, not elsewhere classified; E78.2 Mixed hyperlipidemia; G61.81 Chronic inflammatory demyelinating polyneuritis; K90.0 Celiac disease; M25.50 Pain in unspecified joint; N92.6 Irregular menstruation, unspecified
CPT/HCPCS: 80053; 80061; 82306; 82533; 82607; 82728; 84443; 84702; 85027; 85651; 86140